=== PATIENT | female | born 1990 | race African-American/Black ===

== ENCOUNTER 2019-01-17 13:52 | Emergency (ER) | payer SELFPAY ==
[~2019-01-17] VITALS: Ht 160 cm; Wt 77.1 kg
--- NOTE | 2019-01-17 14:01 | ED General ---
General Stated Complaint: RT ARM INJ History of Present Illness Date Seen by Provider: Jan 17, 2019 Time Seen by Provider: 14:01 Initial Comments Patient presenting to emergency department for evaluation of right elbow pain that has been going on for 2 weeks. She said she put her arm an awkward position 2 weeks ago and since then she doesn't feel that she can extend her elbow completely and that it hurts as well whenever she flexes or tries to hold something up. She Was getting better however she's feels it is worse over the past one week. No weakness numbness or tingling and she denies any neck pain or trauma. She is in no obvious distress with normal vital signs. Allergies and Home Medications Home Medications Naproxen 500 Mg Tablet, 500 MG PO BID Prescribed by: MIKAL VELÁZQUEZ on 01/17/19 0018 Patient Home Medication List Home Medication List Reviewed: Yes Review of Systems Review of Systems Constitutional: no symptoms reported Respiratory: no symptoms reported Cardiovascular: no symptoms reported Musculoskeletal: joint pain Psychiatric/Neurological: No Symptoms Reported All Other Systems Reviewed Negative Unless Noted: Yes Physical Exam Vital Signs Vital Signs - First Documented 01/17/19 14:00 Temp 99.3 Pulse 72 Resp 16 B/P (MAP) 101/81 (88) Pulse Ox 98 O2 Delivery Room Air Capillary Refill : Height, Weight, BMI Height: '" Weight: lbs. oz. kg; BMI Method: General Appearance: No Apparent Distress, WD/WN Neck: Non Tender, Supple Respiratory: No Respiratory Distress Cardiovascular: Regular Rate, Rhythm Extremity: Normal Capillary Refill, Normal Inspection, Normal Range of Motion, Other (tenderness over dorsal elbow. No deformity or swelling noted.) Neurologic/Psychiatric: Alert, Oriented x3, No Motor/Sensory Deficits Skin: Normal Color, Warm/Dry Progress/Results/Core Measures Suspected Sepsis SIRS Temperature: Pulse: Respiratory Rate: Blood Pressure / Mean: Results/Orders My Orders Orders - MIKAL VELÁZQUEZ DO Elbow 3 View Right (01/17/19 14:08) Vital Signs/I&O 01/17/19 14:00 Temp 99.3 Pulse 72 Resp 16 B/P (MAP) 101/81 (88) Pulse Ox 98 O2 Delivery Room Air Capillary Refill : Progress Note : Progress Note Patient with elbow pain that appears to be muscular skeletal. Radicular pain is a possibility as well. Elbow x-ray is normal and she has a normal neurovascular status so she'll be discharged in stable condition told to take NSAIDs for pain follow with a primary care provider to ensure improvement and come back to the ED sooner with worsening pain neurologic changes with or general concerns. Departure Impression Primary Impression: Strain of elbow, right Qualified Codes: S46.911A - Strain of unspecified muscle, fascia and tendon at shoulder and upper arm level, right arm, initial encounter Disposition: HOME, SELF-CARE Condition: Stable Departure-Patient Inst. Referrals: NO,LOCAL PHYSICIAN (PCP/Family) Primary Care Physician Patient Instructions: Elbow Sprain (DC) Scripts Naproxen (Naprosyn) 500 Mg Tablet 500 MG PO BID, #14 TAB 0 Refills Prov: MIKAL VELÁZQUEZ DO 01/17/19 MIKAL VELÁZQUEZ DO Jan 17, 2019 14:01
[2019-01-17] MEDS ORDERED: NAPR-1071 PO (14:18)
--- NOTE | 2019-01-17 14:37 | Diagnostic Imaging Report ---
EXAMINATION: Right elbow, three views. INDICATION: Traumatic right elbow injury. Pain. Patient reports right elbow got stuck between furniture approximately one week ago. COMPARISON: None available. FINDINGS: No fracture or acute osseous abnormality. Bony alignment is maintained. No significant arthritic change is noted. No elbow joint effusion. Soft tissues are unremarkable. IMPRESSION: No acute fracture or dislocation. Dictated by: Dictated on workstation # [id number]
[2019-01-17 14:45] VITALS: BP 101/81
== END 2019-01-17 14:45 | disposition home or self-care (01) ==
LOC: ER FS 13:54
DX: S46.911A Strain of unspecified muscle, fascia and tendon at shoulder and upper arm level, right arm, initial encounter (principal); X50.1XXA Overexertion from prolonged static or awkward postures, initial encounter
CPT/HCPCS: 73080

== ENCOUNTER 2019-02-10 11:34 | Emergency (ER) | payer SELFPAY ==
[~2019-02-10] VITALS: Ht 160 cm; Wt 80.0 kg
[~2019-02-10 11:34] MED LIST: NAPR-1071 PO
[2019-02-10] MEDS ORDERED: ONDANSETRON 4 MG (ZOFRAN) ORAL DISSOLVE TAB PO STA (12:19)
[2019-02-10] MEDS ORDERED: ANTACID SUSP 30 ML UDC (MYLANTA) PO ONE (12:30)
[2019-02-10] MEDS ORDERED: FAMOTIDINE 20 MG (PEPCID) TABLET PO ONE (12:30)
[2019-02-10 12:31] LABS: CLARITY,URINE CLEAR; COLOR,URINE YELLOW
[2019-02-10 12:32] LABS: BACTERIA,URINE 1+ /HPF; BILIRUBIN,URINE 2+ (NEGATIVE); GLUCOSE, URINE (UA) NEGATIVE (NEGATIVE); KETONES,URINE 1+ (NEGATIVE); LEUKOCYTE ESTERASE ,URINE NEGATIVE (NEGATIVE); NITRITE,URINE NEGATIVE (NEGATIVE); PROTEIN,URINE TRACE (NEGATIVE); RBC,URINE RARE /HPF; SQUAMOUS EPITHELIAL CELL,UR >50 /HPF
[2019-02-10 12:53] LABS: HEMOGLOBIN 12.9 G/DL (11.5-16.0); MEAN PLATELET VOLUME 9.3 FL (7.4-10.4); RED CELL DISTRIBUTION WIDTH 14.2 % (10.0-14.5); WHITE BLOOD COUNT 10.8 10^3/uL (4.3-11.0)
[2019-02-10 13:04] LABS: BUN/CREATININE RATIO 11; CALCIUM 9.8 MG/DL (8.5-10.1); CARBON DIOXIDE 22 MMOL/L (21-32); CHLORIDE 99 MMOL/L (98-107); CREATININE SERUM 0.55 MG/DL (0.60-1.30); GFR ESTIMATED > 60; GLUCOSE 98 MG/DL (70-105); POTASSIUM 3.5 MMOL/L (3.6-5.0); SODIUM 137 MMOL/L (135-145)
[2019-02-10] MEDS ORDERED: NS IV 1000 ML 1,000 ML IV SCH (13:15)
[2019-02-10] MEDS ORDERED: ONDA4TAB11 PO (13:25)
[2019-02-10] MEDS ORDERED: FAMO-119 PO (13:26)
[2019-02-10 13:32] VITALS: BP 121/62
--- NOTE | 2019-02-11 04:53 | ED Abdominal Pain ---
General Chief Complaint: Abdominal/GI Problems Stated Complaint: N/V; LOSS OF APPETITE Nursing Triage Note: PT REPORTS N/V SINCE LAST SUNDAY. Sepsis Screen: No Definite Risk Exam Limitations: No Limitations History of Present Illness Date Seen by Provider: Feb 10, 2019 Time Seen by Provider: 07:00 Initial Comments Patient is a 29-year-old -[place] female presents with persistent nausea vomiting for the past several days. Reports mild epigastric pain upon eating. Denies flank pain, urinary frequency urgency or burning. No hematemesis or coffee-ground emesis. No diarrhea or melena. No other acute symptoms or complaints. Last menstrual period was approximately 5 weeks ago. Timing/Duration: 4-5 Days Severity/Quality: Moderate Location: Epigastric Radiation: No Radiation Modifying Factors: Improves With Analgesics Associated Symptoms: No Denies Symptoms, No Back Pain; Heartburn, Nausea/Vomiting Allergies and Home Medications Allergies Coded Allergies: No Known Drug Allergies (Unverified , 02/10/19) Home Medications Famotidine 20 Mg Tablet, 20 MG PO BID Prescribed by: CRISTOBAL CASTILLO on 02/10/19 1326 Naproxen 500 Mg Tablet, 500 MG PO BID Prescribed by: MIKAL VELÁZQUEZ on 01/17/19 1418 Ondansetron 4 Mg Tab.rapdis, 4 MG PO Q6H Prescribed by: CRISTOBAL CASTILLO on 02/10/19 1325 Patient Home Medication List Home Medication List Reviewed: Yes Review of Systems Review of Systems Constitutional: see HPI EENTM: See HPI Respiratory: See HPI Cardiovascular: See HPI Gastrointestinal: See HPI Genitourinary: See HPI Musculoskeletal: see HPI Skin: see HPI Psychiatric/Neurological: See HPI Endocrine: See HPI Past Xcoovvg-Jsikew-Amhgim Hx Past Med/Social Hx: Reviewed Nursing Past Med/Soc Hx Patient Social History Alcohol Use: Denies Use Recreational Drug Use: No Smoking Status: Current Everyday Smoker Type Used: Cigarettes 2nd Hand Smoke Exposure: Yes Recent Foreign Travel: No Contact w/Someone Who Travel: No Recent Infectious Disease Expo: No Recent Hopitalizations: No Physical Abuse: No Sexual Abuse: No Mistreated: No Fear: No Seasonal Allergies Seasonal Allergies: No Past Medical History Surgeries: No Respiratory: No Cardiac: No Neurological: No Genitourinary: No Gastrointestinal: No Musculoskeletal: No Endocrine: No HEENT: No Cancer: No Psychosocial: No Integumentary: No Blood Disorders: No Physical Exam Vital Signs Vital Signs - First Documented 02/10/19 12:00 Temp 36.9 Pulse 63 Resp 18 B/P (MAP) 118/44 Pulse Ox 100 O2 Delivery Room Air Capillary Refill : Less Than 3 Seconds Height/Weight/BMI Height: 5'3.00" Weight: 170lbs. oz. 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, no motor/sensory deficits, alert, oriented x 3 Progress/Results/Core Measures Results/Orders Lab Results Laboratory Tests Test 02/10/19 12:03 02/10/19 12:40 Range/Units Urine Color YELLOW Urine Clarity CLEAR Urine pH 6.0 5-9 Urine Specific [place] >1.030 1.016-1.022 Urine Protein TRACE NEGATIVE Urine Glucose (UA) NEGATIVE NEGATIVE Urine Ketones 1+ H NEGATIVE Urine Nitrite NEGATIVE NEGATIVE Urine Bilirubin 2+ H NEGATIVE Urine Urobilinogen 1.0 NORMAL MG/DL Urine Leukocyte Esterase NEGATIVE NEGATIVE Urine RBC (Auto) TRACE H NEGATIVE Urine RBC RARE /HPF Urine WBC NONE /HPF Urine Squamous Epithelial Cells >50 H /HPF Urine Crystals NONE /LPF Urine Bacteria 1+ /HPF Urine Casts NONE /LPF Urine Mucus NEGATIVE /LPF Urine Culture Indicated NO White Blood Count 10.8 4.3-11.0 10^3/uL Red Blood Count 4.08 L 4.35-5.85 10^6/uL Hemoglobin 12.9 11.5-16.0 G/DL Hematocrit 39 35-52 % Mean Corpuscular Volume 94 80-99 FL Mean Corpuscular Hemoglobin 32 25-34 PG Mean Corpuscular Hemoglobin Concent 34 32-36 G/DL Red Cell Distribution Width 14.2 10.0-14.5 % Platelet Count 227 130-400 10^3/uL Mean Platelet Volume 9.3 7.4-10.4 FL Sodium Level 137 135-145 MMOL/L Potassium Level 3.5 L 3.6-5.0 MMOL/L Chloride Level 99 98-107 MMOL/L Carbon Dioxide Level 22 21-32 MMOL/L Anion Gap 16 H 5-14 MMOL/L Blood Urea Nitrogen 6 L 7-18 MG/DL Creatinine 0.55 L 0.60-1.30 MG/DL Estimat Glomerular Filtration Rate > 60 BUN/Creatinine Ratio 11 Glucose Level 98 70-105 MG/DL Calcium Level 9.8 8.5-10.1 MG/DL Human Chorionic Gonadotropin, Quant 43631 H <5 MIU/ML My Orders Orders - CRISTOBAL CASTILLO DO Cbc No Diff (02/10/19 12:19) Basic Metabolic Panel (02/10/19 12:19) Urinalysis (02/10/19 12:19) Urine Bedside (02/10/19 12:19) Famotidine Tablet (Pepcid Tablet) (02/10/19 12:30) Ondansetron Oral Dissolve Tab (Zofran (02/10/19 12:19) Antacid Suspension (Mylanta Suspension (02/10/19 12:30) Hcg,Quantitative (02/10/19 13:03) Ns Iv 1000 Ml (Sodium Chloride 0.9%) (02/10/19 13:15) Vital Signs/I&O 02/10/19 02/10/19 12:00 13:32 Temp 36.9 36.0 Pulse 63 72 Resp 18 16 B/P (MAP) 118/44 121/62 Pulse Ox 100 99 O2 Delivery Room Air Room Air Blood Pressure Mean: 68 Departure Communication (Admissions) Symptomatic improvement with treatment. Recommend continued supportive care and OB follow-up. Impression Primary Impression: Vomiting Disposition: 01 HOME, SELF-CARE Condition: Improved Departure-Patient Inst. Add. Discharge Instructions: Please take newly prescribed medication as directed, drink clear liquids and advance to bland diet as tolerated. Follow-up with local [facility] for additional outpatient testing. All discharge instructions reviewed with patient and/or family. Voiced understanding. Scripts Famotidine (Pepcid) 20 Mg Tablet 20 MG PO BID, #60 TAB Prov: CRISTOBAL CASTILLO DO 02/10/19 Ondansetron (Ondansetron Odt) 4 Mg Tab.rapdis 4 MG PO Q6H, #10 TAB Prov: CRISTOBAL CASTILLO DO 02/10/19 CRISTOBAL CASTILLO DO Feb 11, 2019 04:53
== END 2019-02-10 13:32 | disposition home or self-care (01) ==
LOC: EDUNIT# 11:34 → ER FS 11:35
DX: O21.0 Mild hyperemesis gravidarum (principal); O99.331 Smoking (tobacco) complicating pregnancy, first trimester; F17.210 Nicotine dependence, cigarettes, uncomplicated; Z3A.01 Less than 8 weeks gestation of pregnancy
CPT/HCPCS: 36415; 80048; 81000; 84702; 84703; 85027

== ENCOUNTER 2019-04-13 17:35 | Emergency (ER) | payer OTHER ==
[~2019-04-13 17:35] MED LIST changes: +FAMO-119 PO; +ONDA4TAB11 PO
== END 2019-04-13 17:55 | disposition left against medical advice (07) ==
LOC: EDUNIT# 17:35 → ER FS 17:39
DX: R11.10 Vomiting, unspecified (principal); R10.9 Unspecified abdominal pain

== ENCOUNTER 2019-08-03 10:14 | Emergency (ER) | payer SELFPAY ==
--- NOTE | 2019-08-03 10:43 | ED GU-Female ---
General Chief Complaint: INBOUND SALES ADVISOR Stated Complaint: 7 MONTHS PREG - WEAKNESS,VAGINAL PRESSURE Source: patient History of Present Illness Date Seen by Provider: Aug 03, 2019 Time Seen by Provider: 10:38 Initial Comments 29-year-old female Ab1 unknown last menstrual period with an EDC of 28 September complains of lower abdominal pain midline and is cramping and severe there is some urinary frequency there is no bleeding. This has started out approximately a month ago but has gotten worse recently at the point with the patient poorly tolerates. He also has been sick with low-grade fever and congestion congestion and productive cough. Timing/Duration: getting worse Severity/Quality: moderate Location: suprapubic Radiation: none Activities at Onset: none Prior Genitourinary Problems: none Sexual [place] History: other Allergies and Home Medications Allergies Coded Allergies: No Known Drug Allergies (Unverified , 02/10/19) Home Medications Albuterol Sulfate 6.7 Gm Hfa.aer.ad, 2 PUFF INH Q6H Prescribed by: MEAGHAN KELLY on 08/03/19 1123 Cephalexin 500 Mg Capsule, 500 MG PO BID PRN for Urinary tract infection Prescribed by: MEAGHAN KELLY on 08/03/19 1123 Famotidine 20 Mg Tablet, 20 MG PO BID Prescribed by: CRISTOBAL CASTILLO on 02/10/19 1326 Naproxen 500 Mg Tablet, 500 MG PO BID Prescribed by: MIKAL VELÁZQUEZ on 01/17/19 1418 Ondansetron 4 Mg Tab.rapdis, 4 MG PO Q6H Prescribed by: CRISTOBAL CASTILLO on 02/10/19 1325 Patient Home Medication List Home Medication List Reviewed: Yes Review of Systems Review of Systems Constitutional: fever EENTM: nose congestion Respiratory: cough, phlegm, wheezing Cardiovascular: no symptoms reported Gastrointestinal: see HPI Genitourinary: see HPI, frequency : Yes Expected Date of Delivery: Sep 29, 2019 Musculoskeletal: no symptoms reported Skin: no symptoms reported Psychiatric/Neurological: No Symptoms Reported Past Ohemsku-Dvzppe-Ygtfea Hx Past Med/Social Hx: Reviewed Nursing Past Med/Soc Hx Patient Social History Alcohol Use: Denies Use Recreational Drug Use: No Type Used: Cigarettes 2nd Hand Smoke Exposure: Yes Recent Hopitalizations: No Physical Abuse: No Sexual Abuse: No Mistreated: No Fear: No Seasonal Allergies Seasonal Allergies: No Past Medical History Surgeries: No Respiratory: No Cardiac: No Neurological: No Genitourinary: No Gastrointestinal: No Musculoskeletal: No Endocrine: No HEENT: No Cancer: No Psychosocial: No Integumentary: No Blood Disorders: No Physical Exam Vital Signs Capillary Refill : Height, Weight, BMI Height: 5'3.00" Weight: 170lbs. oz. 77.632548pf; 31.00 BMI Method:Stated General Appearance: WD/WN, no apparent distress HEENT: PERRL/EOMI, normal ENT inspection Neck: non-tender, full range of motion, normal inspection Cardiovascular: regular rate, rhythm, no edema, no murmur Respiratory: chest non-tender, rhonchi, wheezing Gastrointestinal: normal bowel sounds, non tender, soft, distended Back: normal inspection, no CVA tenderness Extremities: normal range of motion, non-tender, normal inspection Neurologic/Psychiatric: regional property manager II-XII nml as tested, no motor/sensory deficits, alert, normal mood/affect, oriented x 3 Skin: normal color, warm/dry Transabdominal ultrasound shows a fetus at or near term transverse lie heart tones in the 148 range placenta visualized anteriorly without evidence of gross hemorrhage or abruption. activity was normal Progress/Results/Core Measures Suspected Sepsis SIRS Temperature: Pulse: Respiratory Rate: Blood Pressure / Mean: Results/Orders Lab Results Laboratory Tests Test 08/03/19 10:45 Range/Units Urine Color DARK YELLOW Urine Clarity CLEAR Urine pH 6.5 5-9 Urine Specific [place] 1.020 1.016-1.022 Urine Protein NEGATIVE NEGATIVE Urine Glucose (UA) NEGATIVE NEGATIVE Urine Ketones TRACE H NEGATIVE Urine Nitrite NEGATIVE NEGATIVE Urine Bilirubin 1+ H NEGATIVE Urine Urobilinogen 1.0 < = 1.0 MG/DL Urine Leukocyte Esterase TRACE H NEGATIVE Urine RBC (Auto) 2+ H NEGATIVE Urine RBC 5-10 H /HPF Urine WBC 5-10 H /HPF Urine Squamous Epithelial Cells 2-5 /HPF Urine Crystals NONE /LPF Urine Bacteria NEGATIVE /HPF Urine Casts NONE /LPF Urine Mucus LARGE H /LPF Urine Culture Indicated YES My Orders Orders - MEAGHAN KELLY DO Ua Culture If Indicated (08/03/19 10:43) Albuterol/Ipra Inhalation Soln (Duoneb I (08/03/19 10:45) Svn Small Volume Nebulizer (08/03/19 10:43) Urine Culture (08/03/19 10:45) Medications Given in ED Current Medications Medications Dose Ordered Sig/Shala Route Start Time Stop Time Status Last Admin Dose Admin Albuterol/ Ipratropium 3 ml ONCE ONCE INH 08/03/19 10:45 08/03/19 10:46 DC 08/03/19 10:51 3 ML Vital Signs/I&O Capillary Refill : Progress Note : Progress Note W5 the patient with 3 problems she is 26 weeks plus or minus with lower abdominal pain but no bleeding urinary frequency symptoms as well as cough and wheezing that is diffuse bilaterally plan will be to give her albuterol nebulizer catheterized urine specimen consult with her manager multicultural concerning follow-up Departure Communication (Admissions) Examination patient's lungs were clear is only faint wheezing now symptomatically she's feels like she is moving more air. Plan will be to continue on the albuterol encouraged not be smoking Communication (PCP) Discussed the patient's urine analysis bedside ultrasound and pulmonary status with Dr. Landeros [facility] who agreed with the management recommended Keflex albuterol and would follow-up the next 1-2 days Impression Primary Impression: Urinary tract infection Additional Impression: Abdominal pain affecting Disposition: HOME, SELF-CARE Condition: Stable Departure-Patient Inst. Referrals: DELILAH LANDEROS DO (PCP/Family) Primary Care Physician 1 or 2 days Patient Instructions: Urinary Tract Infection, Adult (DC) Scripts Albuterol Sulfate (Proventil Hfa) 6.7 Gm Hfa.aer.ad 2 PUFF INH Q6H for SHORTNESS OF BREATH for 5 Days, #1 EACH Prov: MEAGHAN KELLY DO 08/03/19 Cephalexin (Keflex) 500 Mg Capsule 500 MG PO BID PRN for Urinary tract infection for 7 Days, #28 CAP Prov: MEAGHAN KELLY DO 08/03/19 MEAGHAN KELLY DO Aug 03, 2019 10:43
[2019-08-03] MEDS ORDERED: RT-ALBUTEROL/IPRATROPIUM 3 ML (DUONEB) VIAL INH ONE (10:45)
[2019-08-03 11:01] LABS: CLARITY,URINE CLEAR; COLOR,URINE DARK YELLOW; GLUCOSE, URINE (UA) NEGATIVE (NEGATIVE); KETONES,URINE TRACE (NEGATIVE); NITRITE,URINE NEGATIVE (NEGATIVE); PH,URINE 6.5 (5-9); PROTEIN,URINE NEGATIVE (NEGATIVE)
[2019-08-03 11:02] LABS: BILIRUBIN,URINE 1+ (NEGATIVE); LEUKOCYTE ESTERASE ,URINE TRACE (NEGATIVE)
[2019-08-03 11:03] LABS: BACTERIA,URINE NEGATIVE /HPF
[2019-08-03] MEDS ORDERED: RT-ALBUINH INH (11:22)
[2019-08-03] MEDS ORDERED: CEPH-507 PO (11:22)
[2019-08-03 11:31] VITALS: BP 113/76
== END 2019-08-03 11:28 | disposition home or self-care (01) ==
LOC: EDUNIT# 10:14 → ER FS 10:16
DX: O23.41 Unspecified infection of urinary tract in pregnancy, first trimester (principal); Z3A.01 Less than 8 weeks gestation of pregnancy; Z77.22 Contact with and (suspected) exposure to environmental tobacco smoke (acute) (chronic)
CPT/HCPCS: 81000; 87088; 99282

== ENCOUNTER 2021-08-20 11:54 | Emergency (ER) | payer SELFPAY ==
[~2021-08-20 11:54] MED LIST changes: +CEPH-507 PO; +RT-ALBUINH INH
[2021-08-20 12:14] LABS: BASOPHILS # (AUTO) 0.1 10^3/uL (0.0-0.1); BASOPHILS % (AUTO) 1 % (0-10); EOSINOPHILS # (AUTO) 0.7 10^3/uL (0.0-0.3); EOSINOPHILS % (AUTO) 13 % (0-10); HEMATOCRIT 38 % (35-52); HEMOGLOBIN 12.6 g/dL (11.5-16.0); LYMPHOCYTES # (AUTO) 2.2 10^3/uL (1.0-4.0); LYMPHOCYTES % (AUTO) 44 % (12-44); MEAN CORPUSCULAR HEMOGLOBIN 30 pg (25-34); MEAN CORPUSCULAR HGB CONC 33 g/dL (32-36); MEAN CORPUSCULAR VOLUME 90 fL (80-99); MEAN PLATELET VOLUME 8.9 fL (9.0-12.2); MONOCYTES # (AUTO) 0.9 10^3/uL (0.0-1.0); MONOCYTES % (AUTO) 18 % (0-12); NEUTROPHILS # (AUTO) 1.2 10^3/uL (1.8-7.8); NEUTROPHILS % (AUTO) 24 % (42-75); PLATELET COUNT 372 10^3/uL (130-400)
[2021-08-20] MEDS ORDERED: KETOROLAC 30 MG/ML VIAL IVP ONE (12:15)
--- NOTE | 2021-08-20 12:15 | ED Cough/URI ---
General Chief Complaint: Cough/Cold/Flu Symptoms Stated Complaint: CHEST PAIN Source: patient Exam Limitations: no limitations History of Present Illness Date Seen by Provider: Aug 20, 2021 Time Seen by Provider: 12:07 Initial Comments 31-year-old female G3, P3 that is 18 days out from a coming in due to 2 days of nonproductive cough, nonbloody diarrhea, and chest discomfort. Most of the chest discomfort started last night, is a tightness that has seemed to come and go. Its not so bad right now. It is mild to moderate. Has never had this before. Her other children are sick right now as well. She had COVID about a month ago. Is not vaccinated. Denies any history of DVT or PE. Does not take any hormones. Has not had any surgery under general anesthesia in the past 6 weeks. Denies any hemoptysis, shortness of breath, lower extremity swelling or pain, vomiting, fever, or any other concerns. She says she had a follow-up recently with her OB and everything was going well. She had no complications with her . She said the bleeding had consistently been slowing down in regards to her vaginal bleeding. She says in the past 24 hours she is gone through roughly 6 pads which is a little bit more than it was the day prior. Allergies and Home Medications Allergies Coded Allergies: No Known Drug Allergies (Unverified , 02/10/19) Patient Home Medication List Home Medication List Reviewed: Yes Albuterol Sulfate (Proventil Hfa) 6.7 Gm Hfa.aer.ad, 2 PUFF INH Q6H Prescribed by: MEAGHAN KELLY on 08/03/19 1123 Cephalexin (Keflex) 500 Mg Capsule, 500 MG PO BID PRN for Urinary tract infection Prescribed by: MEAGHAN KELLY on 08/03/19 1123 Famotidine (Pepcid) 20 Mg Tablet, 20 MG PO BID Prescribed by: CRISTOBAL CASTILLO on 02/10/19 1326 Naproxen (Naprosyn) 500 Mg Tablet, 500 MG PO BID Prescribed by: MIKAL VELÁZQUEZ on 01/17/19 1418 Ondansetron (Ondansetron Odt) 4 Mg Tab.rapdis, 4 MG PO Q6H Prescribed by: CRISTOBAL CASTILLO on 02/10/19 1325 Review of Systems Review of Systems Constitutional: No chills, No fever EENTM: No blurred vision Respiratory: cough; No short of breath Cardiovascular: chest pain Gastrointestinal: No abdominal pain; diarrhea; No nausea, No vomiting Genitourinary: no symptoms reported Musculoskeletal: no symptoms reported Skin: no symptoms reported Psychiatric/Neurological: No Symptoms Reported Hematologic/Lymphatic: No Symptoms Reported Immunological/Allergic: no symptoms reported All Other Systems Reviewed Negative Unless Noted: Yes Past Jbluaal-Pxxyie-Struxx Hx Patient Social History Tobacco Use?: No Use of E-Cig and/or Vaping dev: No Substance use?: No Alcohol Use?: No Pt feels they are or have been: No Immunizations Up To Date Influenza Vaccine Up-to-Date: No; Not Current First/Initial COVID19 Vaccinat: Not currently vaccinated Seasonal Allergies Seasonal Allergies: No Past Medical History Surgery/Hospitalization HX: x3 Surgeries: Yes Section Respiratory: No Cardiac: No Neurological: No Genitourinary: No Gastrointestinal: No Musculoskeletal: No Endocrine: No HEENT: No Cancer: No Psychosocial: No Integumentary: No Blood Disorders: No Physical Exam Vital Signs - First Documented 08/20/21 11:56 Temp 37.0 Pulse 70 Resp 22 B/P (MAP) 138/89 (105) Pulse Ox 97 O2 Delivery Room Air Capillary Refill : Height: 5'3.00" Weight: 170lbs. oz. 77.101006hn; 31.00 BMI Method:Stated General Appearance: WD/WN, no apparent distress Eyes: Bilateral Eye Normal Inspection HEENT: PERRL/EOMI, normal ENT inspection, pharynx normal Neck: non-tender, full range of motion, supple, normal inspection Respiratory: chest non-tender, lungs clear, normal breath sounds, no respiratory distress, no accessory muscle use Cardiovascular: regular rate, rhythm, no edema, no murmur Gastrointestinal: normal bowel sounds, non tender, soft; No distended, No guarding, No rebound; other ( scar is healed) Extremities: normal range of motion, non-tender, normal inspection, no pedal edema, no calf tenderness, normal capillary refill Neurologic/Psychiatric: no motor/sensory deficits, alert, normal mood/affect Skin: normal color, warm/dry Lymphatic: no adenopathy Progress/Results/Core Measures Suspected Sepsis SIRS Temperature: Pulse: Respiratory Rate: Laboratory Tests 08/20/21 12:00: White Blood Count 5.0 Blood Pressure / Mean: Laboratory Tests 08/20/21 12:00: Creatinine 0.60, INR Comment 1.1, Platelet Count 372, Total Bilirubin 0.2 Results/Orders Lab Results Laboratory Tests Test 08/20/21 12:00 Range/Units White Blood Count 5.0 4.3-11.0 10^3/uL Red Blood Count 4.21 3.80-5.11 10^6/uL Hemoglobin 12.6 11.5-16.0 g/dL Hematocrit 38 35-52 % Mean Corpuscular Volume 90 80-99 fL Mean Corpuscular Hemoglobin 30 25-34 pg Mean Corpuscular Hemoglobin Concent 33 32-36 g/dL Red Cell Distribution Width 14.2 10.0-14.5 % Platelet Count 372 130-400 10^3/uL Mean Platelet Volume 8.9 L 9.0-12.2 fL Immature Granulocyte % (Auto) 0 % Neutrophils (%) (Auto) 24 L 42-75 % Lymphocytes (%) (Auto) 44 12-44 % Monocytes (%) (Auto) 18 H 0-12 % Eosinophils (%) (Auto) 13 H 0-10 % Basophils (%) (Auto) 1 0-10 % Neutrophils # (Auto) 1.2 L 1.8-7.8 10^3/uL Lymphocytes # (Auto) 2.2 1.0-4.0 10^3/uL Monocytes # (Auto) 0.9 0.0-1.0 10^3/uL Eosinophils # (Auto) 0.7 H 0.0-0.3 10^3/uL Basophils # (Auto) 0.1 0.0-0.1 10^3/uL Immature Granulocyte # (Auto) 0.0 0.0-0.1 10^3/uL Prothrombin Time 14.3 12.2-14.7 SEC INR Comment 1.1 0.8-1.4 Activated Partial Thromboplast Time 29 24-35 SEC Sodium Level 140 135-145 MMOL/L Potassium Level 4.6 3.6-5.0 MMOL/L Chloride Level 104 98-107 MMOL/L Carbon Dioxide Level 23 21-32 MMOL/L Anion Gap 13 5-14 MMOL/L Blood Urea Nitrogen 10 7-18 MG/DL Creatinine 0.60 0.60-1.30 MG/DL Estimat Glomerular Filtration Rate 122 BUN/Creatinine Ratio 17 Glucose Level 98 70-105 MG/DL Calcium Level 9.5 8.5-10.1 MG/DL Corrected Calcium 9.3 8.5-10.1 MG/DL Magnesium Level 2.0 1.6-2.4 MG/DL Total Bilirubin 0.2 0.1-1.0 MG/DL Aspartate Amino Transf (AST/SGOT) 16 5-34 U/L Alanine Aminotransferase (ALT/SGPT) 24 0-55 U/L Alkaline Phosphatase 73 40-136 U/L Troponin I < 0.30 <0.30 NG/ML Pro-B-Type Natriuretic Peptide 31.2 <75.0 PG/ML Total Protein 7.6 6.4-8.2 GM/DL Albumin 4.2 3.2-4.5 GM/DL My Orders Orders - VÍCTOR REYNOLDS MD Cbc With Automated Diff (08/20/21 12:06) Magnesium (08/20/21 12:06) Chest 1 View Ap/Pa Only (08/20/21 12:06) Ekg Tracing (08/20/21 12:06) Comprehensive Metabolic Panel (08/20/21 12:06) Protime With Inr (08/20/21 12:06) Partial Thromboplastin Time (08/20/21 12:06) O2 (08/20/21 12:06) Monitor-Rhythm Ecg Trace Only (08/20/21 12:06) Ed Iv/Invasive Line Start (08/20/21 12:06) Troponin I Fs (08/20/21 12:06) Probnp Fs (08/20/21 12:06) Ketorolac Injection (Toradol Injection) (08/20/21 12:15) Medications Given in ED Current Medications Medications Dose Ordered Sig/Shala Route Start Time Stop Time Status Last Admin Dose Admin Ketorolac Tromethamine 15 mg ONCE ONCE IVP 08/20/21 12:15 08/20/21 12:16 DC 08/20/21 12:12 15 MG Vital Signs/I&O 08/20/21 08/20/21 11:56 12:45 Temp 37.0 37.0 Pulse 70 73 Resp 22 18 B/P (MAP) 138/89 (105) 117/54 Pulse Ox 97 99 O2 Delivery Room Air Room Air Capillary Refill : Progress Note : Progress Note Comfortable appearing 31-year-old female with above history coming in due to cough, diarrhea, and some chest discomfort. ABCs were intact and vitals were stable on presentation. Physical exam reassuring, and specifically her abdominal wound from the is healed. It is reassuring that she had COVID about a month ago, and it is very unlikely she has this again. She has no fever as well and is well-appearing. Likely is viral in regards to something her children brought home. An IV was placed and basic labs including cardiac biomarkers were obtained, specifically given she is to further risk assess her for cardiomyopathy. I think this is unlikely given no signs of heart failure clinically on exam. Her [place] score is 0 making her low risk for a PE and she is PERC negative. EKG normal sinus with no signs of ischemia. Troponin negative, BNP normal, hemoglobin normal. Chest x-ray clear. On reassessment vitals continues to be completely normal and she is well-appearing. I believe she is stable for discharge with outpatient follow-up. She was sent home with strict return precautions ECG Initial ECG Impression Date: Aug 20, 2021 Initial ECG Impression Time: 12:07 Initial ECG Rate: 72 Initial ECG Rhythm: Normal Sinus Comment Normal sinus rhythm, narrow QRS, normal axis, no significant ST changes or T wave abnormalities Diagnostic Imaging Diagonstic Imaging: Xray Plain Films/CT/US/NM/MRI: chest Comments [facility]. [place], [place] NAME: YAMILETH NI [facility] REC#: [id number] PT STATUS: REG ER : 1990 PHYSICIAN: VÍCTOR REYNOLDS MD ADMIT DATE: 08/20/21/ER FS Draft Date of Exam:08/20/21 CHEST 1 VIEW AP/PA ONLY INDICATION: Chest pain EXAMINATION:: Chest 08/20/2021 FINDINGS: The cardiomediastinal silhouette is unremarkable. The pulmonary vasculature is within normal limits. The lungs and pleural spaces are clear. IMPRESSION: No evidence of an acute cardiopulmonary process. Dictated on workstation # [id number] Dict: 08/20/21 1232 Trans: 08/20/21 1234 CV [id number] Interpreted by: ZAKIA QUINTEROS MD Electronically signed by: Departure Impression Primary Impression: Upper respiratory infection Qualified Codes: J06.9 - Acute upper respiratory infection, unspecified Additional Impressions: Diarrhea Qualified Codes: R19.7 - Diarrhea, unspecified Chest discomfort Disposition: 01 HOME, SELF-CARE Condition: Stable Departure-Patient Inst. Decision time for Depature: 12:44 Referrals: NO,LOCAL PHYSICIAN (PCP/Family) Primary Care Physician Patient Instructions: Viral Upper Respiratory Infection, Adult (DC), Chest Pain (DC) Add. Discharge Instructions: You were seen in the emergency department with your cough, diarrhea, and chest pain. Your chest x-ray looked clear and you have no signs of pneumonia. Your labs are reassuring and it does not appear like you are having any type of heart attack or other deadly cause of the discomfort you are feeling. It is likely you do have a viral infection that can cause some congestion and discomfort in your chest. I would be careful with taking any ynic-cvt-kdwmnrd decongestants or cold medicine as they can slow down your milk supply when breast-feeding. Tylenol and ibuprofen are always safe for pain. You can also try using a neti pot with saline rinses in your nose to help with the congestion. Talk with your OB if you would like to discuss other medicine she can take while having a viral respiratory infection. Work/School Note: Family Work Note Patient Received Medical Care In the Emergency Department On: Aug 20, 2021 Patient Will Be Able to Return to Work/School On: Aug 20, 2021 Patient Restrictions: Adrián needed to accompany his to the ER. VÍCTOR REYNOLDS MD Aug 20, 2021 12:15
[2021-08-20 12:16] LABS: INR 1.1 (0.8-1.4); PROTHROMBIN TIME PATIENT 14.3 SEC (12.2-14.7)
--- NOTE | 2021-08-20 12:34 | Diagnostic Imaging Report ---
INDICATION: Chest pain EXAMINATION:: Chest 08/20/2021 FINDINGS: The cardiomediastinal silhouette is unremarkable. The pulmonary vasculature is within normal limits. The lungs and pleural spaces are clear. IMPRESSION: No evidence of an acute cardiopulmonary process. Dictated by: Dictated on workstation # [id number]
[2021-08-20 12:37] LABS: ALBUMIN 4.2 GM/DL (3.2-4.5); BILIRUBIN,TOTAL 0.2 MG/DL (0.1-1.0); CALCIUM 9.5 MG/DL (8.5-10.1); CREATININE SERUM 0.6 MG/DL (0.60-1.30); POTASSIUM 4.6 MMOL/L (3.6-5.0); TOTAL PROTEIN 7.6 GM/DL (6.4-8.2)
[2021-08-20 12:45] VITALS: BP 117/54
== END 2021-08-20 12:51 | disposition home or self-care (01) ==
LOC: EDUNIT# 11:54 → ER FS 11:56
DX: J06.9 Acute upper respiratory infection, unspecified (principal); R19.7 Diarrhea, unspecified; R07.89 Other chest pain; Z86.16 Personal history of COVID-19
CPT/HCPCS: 36415; 71045; 80053; 83735; 83880; 84484; 85025; 85610; 85730; 93005; 93041

== ENCOUNTER 2021-10-06 13:13 | Emergency (ER) | payer SELFPAY ==
[~2021-10-06] VITALS: Ht 160 cm; Wt 85.0 kg
[2021-10-06] MEDS ORDERED: LORazepam INJ 2 MG/ML (ATIVAN) VIAL IM ONE (13:30)
[2021-10-06 13:44] VITALS: BP 126/60
[2021-10-06] MEDS ORDERED: LIDOCAINE 2% VISCOUS 15 ML UDC PO ONE (13:45)
[2021-10-06] MEDS ORDERED: ANTACID SUSP 30 ML UDC (MYLANTA) PO ONE (13:45)
[2021-10-06] MEDS ORDERED: ONDANSETRON 4 MG/2 ML (SDV) Z0FRAN IVP ONE (14:15)
[2021-10-06] MEDS ORDERED: FAMOTIDINE 20MG/2ML IV (PEPCID) IVP ONE (14:15)
--- NOTE | 2021-10-06 14:18 | ED General ---
General Chief Complaint: General Problems/Pain Stated Complaint: SOB; CHEST PAIN Nursing Triage Note: Patient has presented to the ER with cc of hyperventilating, short of breath and upper mid abd pain. Patient reports that she has a sharp mid upper abd pain - she drank some milk to help the pain - she had an ulcer in the past. The pain did not go away and she became scared and it became hard to breath. She arrived to ER very anxiou. Source of Information: Patient Exam Limitations: No Limitations History of Present Illness Date Seen by Provider: October 06, 2021 Time Seen by Provider: 14:00 Initial Comments Patient is a 31-year-old female with history of anxiety who presents with epigas tric pain starting 45 minutes prior to ED arrival. States symptoms began after eating and were not improved after drinking milk. She reports moderate to severe sharpness in her upper abdomen which is nonradiating. She does have a history of stomach ulcers. Patient reports feeling anxious and having a panic attack with shortness of breath and tingling in her lips and hands after symptoms began. She denies nausea, vomiting, hematemesis melena hematochezia. No other acute symptoms or complaints. Last menstrual period was 1 month ago. No prior abdominal surgeries. Timing/Duration: 1-3 Hours Severity: Moderate Modifying Factors: improves with Other Associated Systoms: Other Allergies and Home Medications Allergies Coded Allergies: No Known Drug Allergies (Unverified , 02/10/19) Patient Home Medication List Home Medication List Reviewed: Yes Albuterol Sulfate (Proventil Hfa) 6.7 Gm Hfa.aer.ad, 2 PUFF INH Q6H Prescribed by: MEAGHAN KELLY on 08/03/19 1123 Cephalexin (Keflex) 500 Mg Capsule, 500 MG PO BID PRN for Urinary tract infection Prescribed by: MEAGHAN KELLY on 08/03/19 1123 Famotidine (Pepcid) 20 Mg Tablet, 20 MG PO BID Prescribed by: CRISTOBAL CASTILLO on 02/10/19 1326 Naproxen (Naprosyn) 500 Mg Tablet, 500 MG PO BID Prescribed by: MIKAL VELÁZQUEZ on 01/17/19 1418 Ondansetron (Ondansetron Odt) 4 Mg Tab.rapdis, 4 MG PO Q6H Prescribed by: CRISTOBAL CASTILLO on 02/10/19 1325 Review of Systems Review of Systems Constitutional: see HPI EENTM: see HPI Respiratory: see HPI Cardiovascular: see HPI Gastrointestinal: see HPI Genitourinary: see HPI : No Skin: see HPI Psychiatric/Neurological: See HPI Hematologic/Lymphatic: See HPI All Other Systems Reviewed Negative Unless Noted: Yes Past Ctcmlhq-Tegzlv-Xowpun Hx Patient Social History Tobacco Use?: Yes Tobacco type used: Cigarettes Smoking Status: Current Everyday Smoker Use of E-Cig and/or Vaping dev: No Substance use?: No Alcohol Use?: No Pt feels they are or have been: No Immunizations Up To Date First/Initial COVID19 Vaccinat: Not currently vaccinated Seasonal Allergies Seasonal Allergies: No Past Medical History Surgery/Hospitalization HX: x3 Surgeries: Yes Section Respiratory: No Cardiac: No Neurological: No Genitourinary: No Gastrointestinal: No Musculoskeletal: No Endocrine: No HEENT: No Cancer: No Psychosocial: No Integumentary: No Blood Disorders: No Physical Exam Vital Signs Vital Signs - First Documented 10/06/21 13:44 Temp 36.3 Pulse 80 Resp 50 B/P (MAP) 126/60 (82) Pulse Ox 100 Capillary Refill : Height, Weight, BMI Height: 5'3.00" Weight: 170lbs. oz. 77.603259zd; 33.00 BMI Method:Stated General Appearance: Mild Distress Eyes: Bilateral Eye Normal Inspection, Bilateral Eye PERRL, Bilateral Eye EOMI HEENT: PERRL/EOMI, Normal ENT Inspection, Pharynx Normal Respiratory: Lungs Clear Cardiovascular: Regular Rate, Rhythm, No Edema Gastrointestinal: Soft, Tenderness (Epigastric pain/tenderness to palpation) Focused Exam Sepsis Stage: Ruled Out Progress/Results/Core Measures Suspected Sepsis SIRS Temperature: Pulse: 80 Respiratory Rate: 50 Laboratory Tests 10/06/21 14:37: White Blood Count 12.7H Blood Pressure 126 /60 Mean: 82 Laboratory Tests 10/06/21 14:37: Creatinine 0.50L, Platelet Count 248, Total Bilirubin 0.3 Results/Orders Lab Results Laboratory Tests Test 10/06/21 14:37 Range/Units White Blood Count 12.7 H 4.3-11.0 10^3/uL Red Blood Count 4.08 3.80-5.11 10^6/uL Hemoglobin 12.4 11.5-16.0 g/dL Hematocrit 37 35-52 % Mean Corpuscular Volume 91 80-99 fL Mean Corpuscular Hemoglobin 30 25-34 pg Mean Corpuscular Hemoglobin Concent 33 32-36 g/dL Red Cell Distribution Width 16.3 H 10.0-14.5 % Platelet Count 248 130-400 10^3/uL Mean Platelet Volume 9.1 9.0-12.2 fL Immature Granulocyte % (Auto) 0 % Neutrophils (%) (Auto) 81 H 42-75 % Lymphocytes (%) (Auto) 9 L 12-44 % Monocytes (%) (Auto) 8 0-12 % Eosinophils (%) (Auto) 3 0-10 % Basophils (%) (Auto) 0 0-10 % Neutrophils # (Auto) 10.3 H 1.8-7.8 10^3/uL Lymphocytes # (Auto) 1.1 1.0-4.0 10^3/uL Monocytes # (Auto) 1.0 0.0-1.0 10^3/uL Eosinophils # (Auto) 0.3 0.0-0.3 10^3/uL Basophils # (Auto) 0.0 0.0-0.1 10^3/uL Immature Granulocyte # (Auto) 0.0 0.0-0.1 10^3/uL Sodium Level 136 135-145 MMOL/L Potassium Level 4.4 3.6-5.0 MMOL/L Chloride Level 104 98-107 MMOL/L Carbon Dioxide Level 22 21-32 MMOL/L Anion Gap 10 5-14 MMOL/L Blood Urea Nitrogen 10 7-18 MG/DL Creatinine 0.50 L 0.60-1.30 MG/DL Estimat Glomerular Filtration Rate 128 BUN/Creatinine Ratio 20 Glucose Level 94 70-105 MG/DL Calcium Level 9.6 8.5-10.1 MG/DL Corrected Calcium 9.6 8.5-10.1 MG/DL Total Bilirubin 0.3 0.1-1.0 MG/DL Aspartate Amino Transf (AST/SGOT) 30 5-34 U/L Alanine Aminotransferase (ALT/SGPT) 20 0-55 U/L Alkaline Phosphatase 70 40-136 U/L Total Protein 7.2 6.4-8.2 GM/DL Albumin 4.0 3.2-4.5 GM/DL Lipase 27 8-78 U/L My Orders Orders - CRISTOBAL CASTILLO DO Lorazepam Injection (Ativan Injection) (10/06/21 13:30) Lidocaine 2% Viscous 15 Ml (Xylocaine Vi (10/06/21 13:45) Antacid Suspension (Mylanta Suspension (10/06/21 13:45) Cbc With Automated Diff (10/06/21 14:10) Comprehensive Metabolic Panel (10/06/21 14:10) Lipase (10/06/21 14:10) Ua Culture If Indicated (10/06/21 14:10) Urine Bedside (10/06/21 14:10) Famotidine Injection (Pepcid Injection) (10/06/21 14:15) Ondansetron Injection (Zofran Injectio (10/06/21 14:15) Medications Given in ED Current Medications Medications Dose Ordered Sig/Shala Route Start Time Stop Time Status Last Admin Dose Admin Al Hydrox/Mg Hydrox/Simethicone 30 ml ONCE ONCE PO 10/06/21 13:45 10/06/21 13:46 DC 10/06/21 13:38 30 ML Famotidine 20 mg ONCE ONCE IVP 10/06/21 14:15 10/06/21 14:16 DC 10/06/21 14:40 20 MG Lidocaine HCl 15 ml ONCE ONCE PO 10/06/21 13:45 10/06/21 13:46 DC 10/06/21 13:38 15 ML Lorazepam 2 mg ONCE ONCE IM 10/06/21 13:30 10/06/21 13:31 DC 10/06/21 13:28 2 MG Ondansetron HCl 4 mg ONCE ONCE IVP 10/06/21 14:15 10/06/21 14:16 DC 10/06/21 14:40 4 MG Vital Signs/I&O 10/06/21 13:44 Temp 36.3 Pulse 80 Resp 50 B/P (MAP) 126/60 (82) Pulse Ox 100 Capillary Refill : Blood Pressure Mean: 82 Departure Communication (Admissions) CT abdomen pelvis: Ativan, GI cocktail given with partial relief of symptoms. Anxiety resolved with treatment.. Abdominal pain remains minimally tender on repeat exam but resolved with Pepcid. Lab work reviewed and reassuring. Recommendations are watchful waiting supportive care with close PCP follow-up for further monitoring and evaluation. Return precautions reviewed patient verbalizes understanding agreement discharge instructions prior to departure. Impression Primary Impression: Anxiety attack Additional Impression: Epigastric pain Disposition: HOME, SELF-CARE Condition: Stable Departure-Patient Inst. Decision time for Depature: 15:59 Referrals: NO,LOCAL PHYSICIAN (PCP/Family) Primary Care Physician Patient Instructions: Panic Disorder, Gastritis ED Add. Discharge Instructions: You were evaluated in the emergency department for abdominal pain and anxiety. Your symptoms are consistent with gastritis or peptic ulcer disease. Please take newly prescribed medications as directed, avoid alcohol, caffeine and spicy foods. Follow-up with your PCP in 2 to 3 days for reevaluation. Return to the ED if new or worsening symptoms. All discharge instructions reviewed with patient and/or family. Voiced und erstanding. Scripts Famotidine (Pepcid) 20 Mg Tablet 20 MG PO BID, #20 TAB Prov: CRISTOBAL CASTILLO DO 10/06/21 Sucralfate (Carafate) 1 Gram Tablet 1 GM PO QID, #40 TAB Prov: CRISTOBAL CASTILLO DO 10/06/21 CRISTOBAL CASTILLO DO October 06, 2021 14:18
[2021-10-06 14:47] LABS: BASOPHILS % (AUTO) 0 % (0-10); EOSINOPHILS # (AUTO) 0.3 10^3/uL (0.0-0.3); EOSINOPHILS % (AUTO) 3 % (0-10); HEMATOCRIT 37 % (35-52); HEMOGLOBIN 12.4 g/dL (11.5-16.0); LYMPHOCYTES # (AUTO) 1.1 10^3/uL (1.0-4.0); LYMPHOCYTES % (AUTO) 9 % (12-44); MEAN CORPUSCULAR HEMOGLOBIN 30 pg (25-34); MEAN CORPUSCULAR HGB CONC 33 g/dL (32-36); MEAN CORPUSCULAR VOLUME 91 fL (80-99); MEAN PLATELET VOLUME 9.1 fL (9.0-12.2); MONOCYTES % (AUTO) 8 % (0-12); NEUTROPHILS # (AUTO) 10.3 10^3/uL (1.8-7.8); NEUTROPHILS % (AUTO) 81 % (42-75); PLATELET COUNT 248 10^3/uL (130-400); WHITE BLOOD COUNT 12.7 10^3/uL (4.3-11.0)
[2021-10-06 15:10] LABS: POTASSIUM 4.4 MMOL/L (3.6-5.0)
[2021-10-06 15:11] LABS: BILIRUBIN,TOTAL 0.3 MG/DL (0.1-1.0); CALCIUM 9.6 MG/DL (8.5-10.1); CREATININE SERUM 0.5 MG/DL (0.60-1.30); TOTAL PROTEIN 7.2 GM/DL (6.4-8.2)
[2021-10-06] MEDS ORDERED: FAMO-119 PO (16:01)
[2021-10-06] MEDS ORDERED: SUCR1TAB36 PO (16:01)
== END 2021-10-06 16:40 | disposition home or self-care (01) ==
LOC: EDUNIT# 13:13 → ER FS 13:14
DX: F41.0 Panic disorder [episodic paroxysmal anxiety] (principal); R10.13 Epigastric pain; F17.210 Nicotine dependence, cigarettes, uncomplicated
CPT/HCPCS: 36415; 80053; 83690; 85025; 93005

== ENCOUNTER 2022-05-16 07:44 | Emergency (ER) | payer SELFPAY ==
[~2022-05-16] VITALS: Ht 160 cm; Wt 81.9 kg
[~2022-05-16 07:44] MED LIST changes: +SUCR1TAB36 PO
--- NOTE | 2022-05-16 08:01 | ED GU-Female ---
General Stated Complaint: SUPRAPUBIC PAIN; VOMITING History of Present Illness Date Seen by Provider: May 16, 2022 Time Seen by Provider: 07:56 Initial Comments 32-year-old female presents with lower abdominal pain suprapubic pain been gone for about 3 days with significant vomiting. Some hard time getting down. She reports even the right in here was significantly tender. Patient is approximately 14 weeks with last menstrual period of approximately February 07. Patient reports that the pain started out more suprapubic is now bilateral but more in the right lower quadrant. She is continue to have some vomiting. Allergies and Home Medications Allergies Coded Allergies: No Known Drug Allergies (Unverified , 02/10/19) Patient Home Medication List Home Medication List Reviewed: Yes Albuterol Sulfate (Proventil Hfa) 6.7 Gm Hfa.aer.ad, 2 PUFF INH Q6H Prescribed by: MEAGHAN KELLY on 08/03/19 1123 Cephalexin (Keflex) 500 Mg Capsule, 500 MG PO BID PRN for Urinary tract infection Prescribed by: MEAGHAN KELLY on 08/03/19 1123 Doxylamine/Pyridoxine HCl (Diclegis Dr 10-10 mg Tablet) 10 Mg-10 Mg Tablet.dr, 1 EACH PO Q6H PRN for NAUSEA-1ST LINE Prescribed by: MARIA E DEUTSCH on 05/16/22 0952 Famotidine (Pepcid) 20 Mg Tablet, 20 MG PO BID Prescribed by: CRISTOBAL CASTILLO on 02/10/19 1326 Famotidine (Pepcid) 20 Mg Tablet, 20 MG PO BID Prescribed by: CRISTOBAL CASTILLO on 10/06/21 1601 Naproxen (Naprosyn) 500 Mg Tablet, 500 MG PO BID Prescribed by: MIKAL VELÁZQUEZ on 01/17/19 1418 Ondansetron (Ondansetron Odt) 4 Mg Tab.rapdis, 4 MG PO Q6H Prescribed by: CRISTOBAL CASTILLO on 02/10/19 1325 Sucralfate (Carafate) 1 Gram Tablet, 1 GM PO QID Prescribed by: CRISTOBAL CASTILLO on 10/06/21 1601 Review of Systems Review of Systems Constitutional: No chills, No fever Respiratory: No cough Cardiovascular: No chest pain Gastrointestinal: abdominal pain, nausea, vomiting Genitourinary: denies burning, denies dysuria; other (Denies any vaginal bleeding or discharge) : Yes LMP: Feb 07, 2022 Musculoskeletal: No back pain Skin: no symptoms reported Psychiatric/Neurological: No Symptoms Reported Past Odygcce-Mfztft-Flawza Hx Immunizations Up To Date First/Initial COVID19 Vaccinat: Not currently vaccinated Seasonal Allergies Seasonal Allergies: No Past Medical History Surgery/Hospitalization HX: x3 Surgeries: Yes Section Respiratory: No Cardiac: No Neurological: No Genitourinary: No Gastrointestinal: No Musculoskeletal: No Endocrine: No HEENT: No Cancer: No Psychosocial: No Integumentary: No Blood Disorders: No Physical Exam Vital Signs Vital Signs - First Documented 05/16/22 07:50 Temp 36.1 Pulse 73 Resp 16 B/P (MAP) 109/89 (96) Pulse Ox 98 O2 Delivery Room Air Capillary Refill : Height, Weight, BMI Height: 5'3.00" Weight: 170lbs. oz. 77.952923qx; 33.00 BMI Method:Stated General Appearance: WD/WN, no apparent distress HEENT: PERRL/EOMI Neck: full range of motion, supple Cardiovascular: normal peripheral pulses, regular rate, rhythm Respiratory: chest non-tender, normal breath sounds Gastrointestinal: guarding, tenderness (right greater than left lower abd ) Extremities: normal range of motion, non-tender Neurologic/Psychiatric: cmm operator II-XII nml as tested, no motor/sensory deficits, alert Progress/Results/Core Measures Suspected Sepsis SIRS Temperature: Pulse: Respiratory Rate: Laboratory Tests 05/16/22 08:20: White Blood Count 7.3 Blood Pressure / Mean: Laboratory Tests 05/16/22 08:20: Creatinine 0.36L, Platelet Count 248, Total Bilirubin 0.2 Results/Orders Lab Results Laboratory Tests Test 05/16/22 07:48 05/16/22 08:20 Range/Units Urine Color YELLOW Urine Clarity CLOUDY Urine pH 6.0 5-9 Urine Specific [place] >=1.030 1.016-1.022 Urine Protein TRACE H NEGATIVE Urine Glucose (UA) NEGATIVE NEGATIVE Urine Ketones NEGATIVE NEGATIVE Urine Nitrite NEGATIVE NEGATIVE Urine Bilirubin NEGATIVE NEGATIVE Urine Urobilinogen 0.2 < = 1.0 MG/DL Urine Leukocyte Esterase NEGATIVE NEGATIVE Urine RBC (Auto) NEGATIVE NEGATIVE Urine RBC NONE /HPF Urine WBC 0-2 /HPF Urine Squamous Epithelial Cells 10-25 H /HPF Urine Crystals NONE /LPF Urine Bacteria NEGATIVE /HPF Urine Casts NONE /LPF Urine Mucus LARGE H /LPF Urine Culture Indicated NO White Blood Count 7.3 4.3-11.0 10^3/uL Red Blood Count 4.32 3.80-5.11 10^6/uL Hemoglobin 13.2 11.5-16.0 g/dL Hematocrit 38 35-52 % Mean Corpuscular Volume 88 80-99 fL Mean Corpuscular Hemoglobin 31 25-34 pg Mean Corpuscular Hemoglobin Concent 35 32-36 g/dL Red Cell Distribution Width 14.6 H 10.0-14.5 % Platelet Count 248 130-400 10^3/uL Mean Platelet Volume 9.7 9.0-12.2 fL Immature Granulocyte % (Auto) 0 % Neutrophils (%) (Auto) 51 42-75 % Lymphocytes (%) (Auto) 34 12-44 % Monocytes (%) (Auto) 11 0-12 % Eosinophils (%) (Auto) 3 0-10 % Basophils (%) (Auto) 0 0-10 % Neutrophils # (Auto) 3.7 1.8-7.8 10^3/uL Lymphocytes # (Auto) 2.5 1.0-4.0 10^3/uL Monocytes # (Auto) 0.8 0.0-1.0 10^3/uL Eosinophils # (Auto) 0.2 0.0-0.3 10^3/uL Basophils # (Auto) 0.0 0.0-0.1 10^3/uL Immature Granulocyte # (Auto) 0.0 0.0-0.1 10^3/uL Sodium Level 137 135-145 MMOL/L Potassium Level 3.6 3.6-5.0 MMOL/L Chloride Level 106 98-107 MMOL/L Carbon Dioxide Level 18 L 21-32 MMOL/L Anion Gap 13 5-14 MMOL/L Blood Urea Nitrogen 5 L 7-18 MG/DL Creatinine 0.36 L 0.60-1.30 MG/DL Estimat Glomerular Filtration Rate 137 BUN/Creatinine Ratio 14 Glucose Level 93 70-105 MG/DL Calcium Level 8.8 8.5-10.1 MG/DL Corrected Calcium 9.2 8.5-10.1 MG/DL Total Bilirubin 0.2 0.1-1.0 MG/DL Aspartate Amino Transf (AST/SGOT) 12 5-34 U/L Alanine Aminotransferase (ALT/SGPT) 11 0-55 U/L Alkaline Phosphatase 45 40-136 U/L Total Protein 6.8 6.4-8.2 GM/DL Albumin 3.5 3.2-4.5 GM/DL Human Chorionic Gonadotropin, Quant [id number] H <5 MIU/ML My Orders Orders - DEUTSCH,MARIA E L DO Cbc With Automated Diff (05/16/22 08:07) Comprehensive Metabolic Panel (05/16/22 08:07) Hcg,Quantitative (05/16/22 08:07) Ua Culture If Indicated (05/16/22 08:07) Us Appendix [id number] (05/16/22 08:07) Ondansetron Injection (Zofran Injectio (05/16/22 08:15) Lactated Ringers (Lr 1000 Ml Iv Solution (05/16/22 08:07) Us Ob<14 Wks Sngle W/Transvag (05/16/22 08:07) Medications Given in ED Current Medications Medications Dose Ordered Sig/Shala Route Start Time Stop Time Status Last Admin Dose Admin Ondansetron HCl 4 mg ONCE ONCE IVP 05/16/22 08:15 05/16/22 08:16 DC 05/16/22 08:27 4 MG Vital Signs/I&O 05/16/22 07:50 Temp 36.1 Pulse 73 Resp 16 B/P (MAP) 109/89 (96) Pulse Ox 98 O2 Delivery Room Air Capillary Refill : Progress Note : Progress Note Patient with negative ultrasound for appendicitis with reassuring on 14 weeks intrauterine . Patient with negative white count and labs. Patient provided IV fluids. I will discharge her on doxylamine. Recommend she continue close follow-up with her barrel scraper. She is stable and discharged Diagnostic Imaging Diagonstic Imaging: Ultrasound Comments Date of Exam:05/16/22 US OB<14 WKS SNGLE W/TRANSVAG Technique: Live grayscale and color Doppler ultrasound was performed over the gravid uterus. Reason for exam: Right lower quadrant pain. . COMPARISON: None. FINDINGS: A single live intrauterine gestation is visualized with a crown-rump length of 7.9 cm, consistent with a 14 week 0 day gestation. heart tones measure 150 bpm. The placenta is anterior and not low lying. The gestational sac demonstrates normal contours. A dedicated anatomy survey was not performed, however no obvious abnormalities are seen. The ovaries are visualized and have a normal appearance. No adnexal mass or free fluid. No torsion. IMPRESSION: 1. Single live intrauterine gestation measuring 14 weeks 0 days with heart tones of 150 bpm. No abnormalities are identified. Recommend continued follow-up as indicated. 2. Unremarkable sonographic appearance of the ovaries. No free fluid or adnexal mass. Reviewed: Reviewed/Discussed Diagonstic Imaging: Xray Comments Date of Exam:05/16/22 US APPENDIX [id number] TECHNIQUE: Focused ultrasound of the right lower quadrant was performed. COMPARISON: None. Reason for exam: Right lower quadrant abdominal pain. Currently . FINDINGS: The appendix is not visualized in the right lower quadrant. No secondary signs of acute appendicitis are seen. No soft tissue mass or fluid collection. No free fluid. IMPRESSION: 1. Nonvisualization of the appendix in the right lower quadrant. No secondary signs of acute appendicitis. Recommend continued follow-up and if indicated MRI of the abdomen and pelvis without contrast to further evaluate. Reviewed: Reviewed/Discussed Departure Impression Primary Impression: 14 weeks gestation of Additional Impressions: Abdominal pain during in first trimester Nausea/vomiting in Disposition: 01 HOME, SELF-CARE Condition: Stable Departure-Patient Inst. Referrals: NO,LOCAL PHYSICIAN (PCP/Family) Primary Care Physician Patient Instructions: Taking Gjew-cmy-Lzfqlpx Medicines During , Nausea and Vomiting of , - The Fourth Month Add. Discharge Instructions: Drink plenty of fluids, please follow-up with Dr. Sanders in the next 1 to 2 days for continued monitoring. Scripts Doxylamine/Pyridoxine HCl (Norris Julian 10-10 mg Tablet) 10 Mg-10 Mg Tablet. 1 EACH PO Q6H PRN for NAUSEA-1ST LINE, #30 TAB Prov: MARIA E DEUTSCH DO 05/16/22 Work/School Note: Work Release Form Date Seen in the Emergency Department: May 16, 2022 Return to Work: May 17, 2022 MARIA E DEUTSCH DO May 16, 2022 08:01
[2022-05-16] MEDS ORDERED: LACTATED RINGERS 1,000 ML IV STA (08:07)
[2022-05-16] MEDS ORDERED: ONDANSETRON 4 MG/2 ML (SDV) Z0FRAN IVP ONE (08:15)
[2022-05-16 08:20] LABS: BILIRUBIN,URINE NEGATIVE (NEGATIVE); CLARITY,URINE CLOUDY; COLOR,URINE YELLOW; GLUCOSE, URINE (UA) NEGATIVE (NEGATIVE); KETONES,URINE NEGATIVE (NEGATIVE); LEUKOCYTE ESTERASE ,URINE NEGATIVE (NEGATIVE); NITRITE,URINE NEGATIVE (NEGATIVE); PROTEIN,URINE TRACE (NEGATIVE)
[2022-05-16 08:27] LABS: BACTERIA,URINE NEGATIVE /HPF; WBC,URINE 0-2 /HPF
[2022-05-16 08:28] LABS: BASOPHILS % (AUTO) 0 % (0-10); EOSINOPHILS # (AUTO) 0.2 10^3/uL (0.0-0.3); EOSINOPHILS % (AUTO) 3 % (0-10); HEMATOCRIT 38 % (35-52); HEMOGLOBIN 13.2 g/dL (11.5-16.0); LYMPHOCYTES # (AUTO) 2.5 10^3/uL (1.0-4.0); LYMPHOCYTES % (AUTO) 34 % (12-44); MEAN CORPUSCULAR HEMOGLOBIN 31 pg (25-34); MEAN CORPUSCULAR HGB CONC 35 g/dL (32-36); MEAN CORPUSCULAR VOLUME 88 fL (80-99); MEAN PLATELET VOLUME 9.7 fL (9.0-12.2); MONOCYTES # (AUTO) 0.8 10^3/uL (0.0-1.0); MONOCYTES % (AUTO) 11 % (0-12); NEUTROPHILS # (AUTO) 3.7 10^3/uL (1.8-7.8); NEUTROPHILS % (AUTO) 51 % (42-75); PLATELET COUNT 248 10^3/uL (130-400); WHITE BLOOD COUNT 7.3 10^3/uL (4.3-11.0)
[2022-05-16 09:02] LABS: BILIRUBIN,TOTAL 0.2 MG/DL (0.1-1.0); CALCIUM 8.8 MG/DL (8.5-10.1); CREATININE SERUM 0.36 MG/DL (0.60-1.30); POTASSIUM 3.6 MMOL/L (3.6-5.0)
[2022-05-16 09:03] LABS: ALBUMIN 3.5 GM/DL (3.2-4.5); TOTAL PROTEIN 6.8 GM/DL (6.4-8.2)
--- NOTE | 2022-05-16 09:13 | Diagnostic Imaging Report ---
TECHNIQUE: Focused ultrasound of the right lower quadrant was performed. COMPARISON: None. Reason for exam: Right lower quadrant abdominal pain. Currently . FINDINGS: The appendix is not visualized in the right lower quadrant. No secondary signs of acute appendicitis are seen. No soft tissue mass or fluid collection. No free fluid. IMPRESSION: 1. Nonvisualization of the appendix in the right lower quadrant. No secondary signs of acute appendicitis. Recommend continued follow-up and if indicated MRI of the abdomen and pelvis without contrast to further evaluate. Dictated by: Dictated on workstation # [id number]
--- NOTE | 2022-05-16 09:19 | Diagnostic Imaging Report ---
Technique: Live grayscale and color Doppler ultrasound was performed over the gravid uterus. Reason for exam: Right lower quadrant pain. . COMPARISON: None. FINDINGS: A single live intrauterine gestation is visualized with a crown-rump length of 7.9 cm, consistent with a 14 week 0 day gestation. heart tones measure 150 bpm. The placenta is anterior and not low lying. The gestational sac demonstrates normal contours. A dedicated anatomy survey was not performed, however no obvious abnormalities are seen. The ovaries are visualized and have a normal appearance. No adnexal mass or free fluid. No torsion. IMPRESSION: 1. Single live intrauterine gestation measuring 14 weeks 0 days with heart tones of 150 bpm. No abnormalities are identified. Recommend continued follow-up as indicated. 2. Unremarkable sonographic appearance of the ovaries. No free fluid or adnexal mass. Dictated by: Dictated on workstation # [id number]
[2022-05-16] MEDS ORDERED: DOXY1TAB3 PO (09:52)
[2022-05-16 09:59] VITALS: BP 128/85
== END 2022-05-16 09:59 | disposition home or self-care (01) ==
LOC: EDUNIT# 07:44 → ER FS 07:46
DX: O26.892 Other specified pregnancy related conditions, second trimester (principal); O21.9 Vomiting of pregnancy, unspecified; R10.31 Right lower quadrant pain; R10.32 Left lower quadrant pain; Z28.310 Unvaccinated for COVID-19; Z3A.14 14 weeks gestation of pregnancy
CPT/HCPCS: 36415; 76705; 76801; 76817; 80053; 81000; 84702; 85025

== ENCOUNTER → 2022-09-12 | Outpatient (CLI) | payer BC ==
[~2022-09-12] MED LIST changes: +DOXY1TAB3 PO
--- NOTE | 2022-09-12 18:10 | Diagnostic Imaging Report ---
INDICATION: Supervision of normal . Anatomy survey. TECHNIQUE: Multiple real-time grayscale images were obtained over the gravid uterus. COMPARISON: 05/16/2022. FINDINGS: A single live intrauterine gestation is visualized in cephalic presentation. heart tones measure 147 BPM. The placenta is anterior and not low lying. The MAHENDRA is normal measuring 11.4 cm. The cervix is suboptimally visualized. Views of the adnexa are unremarkable. The kidneys, bladder, stomach, ventricles, four-chamber heart, three-vessel cord, and cord insertion are visualized and have a normal appearance. The spine is not well seen due to position. Biometrical measurements are as follows: Biparietal 8.21 cm, age 33 weeks 1 days. Head circumference 29.26 cm, age 32 weeks 2 days. Abdominal circumference 28.37 cm, age 32 weeks 3 days. Femur length 6.30 cm, age 32 weeks 5 days. Sonographic estimate age: 32 weeks 5 days. Sonographic estimated date of delivery: 11/02/2022. Estimated Weight: 1987 gm (+/- 290 gm). LMP percentile: 89%. heart rate: 147 beats per minute. number: 1 of 1. IMPRESSION: 1. Single live intrauterine gestation measuring 32 weeks 5 days with an estimated due date of 11/02/2022. These are somewhat discordant with the clinical dates of 30 weeks 6 days. Recommend continued follow-up as indicated. 2. The spine is not well seen due to position. Otherwise, the anatomy is visualized and has a normal appearance. Recommend attention on follow-up. Dictated by: Dictated on workstation # [id number]
== END ==
LOC: RAD FS 12:20
PROVIDERS: ATTEND Obstetrics & Gynecology
DX: Z34.93 Encounter for supervision of normal pregnancy, unspecified, third trimester (principal); Z3A.32 32 weeks gestation of pregnancy
CPT/HCPCS: 76805

== ENCOUNTER 2022-09-22 10:26 | Outpatient (CLI) | payer SELFPAY ==
[~2022-09-22] VITALS: Ht 160 cm; Wt 86.1 kg
[2022-09-22 11:30] LABS: BILIRUBIN,URINE NEGATIVE (NEGATIVE); CLARITY,URINE CLEAR; COLOR,URINE YELLOW; GLUCOSE, URINE (UA) NEGATIVE (NEGATIVE); KETONES,URINE NEGATIVE (NEGATIVE); LEUKOCYTE ESTERASE ,URINE NEGATIVE (NEGATIVE); NITRITE,URINE NEGATIVE (NEGATIVE); PROTEIN,URINE NEGATIVE (NEGATIVE)
[2022-09-22 11:51] VITALS: BP 120/76
[2022-09-22 12:07] LABS: BACTERIA,URINE NEGATIVE /HPF; RBC,URINE RARE /HPF; WBC,URINE RARE /HPF
--- NOTE | 2022-09-22 12:08 | OB Triage Report ---
Standard Progress Note Progress Notes/Assess & Plan Date Seen by a Provider: Sep 22, 2022 Time Seen by a Provider: 11:45 Expected Date of Delivery: Nov 09, 2022 Gestational Age in Weeks: 32 Gestational Age in Days: 2 LMP/JUSTINE Comment: 11/09/22 Progress/Assessment & Plan Patient presents at 32w GA by stated JUSTINE c/w US at outside facility, for R flank pain. She reports it began last night, then resolved, then returned this morning, but more mild than it had been last night. Radiates to R groin area; denies contractions, bleeding, LOF, fever, or dysuria; good FM. Of note, pt has h/o 3 prior CS, and otherwise uncomplicated On exam abdomen is soft, non-distended, and gravid; mildly TTP in R abdomen, no CVA tenderness. A/P: at 32 GA with R flank pain; clinically reassuring on exam and vitals, and afebrile. Suspect MSK cause so will treat with acetaminophen and heat, but will also check UA/UC for potential UTI/urolithiasis as cause. No clinical signs of labor, abruption, or ROM, but will monitor clinically for those; Cat I reactive FHT. If UA/UC is reassuring will plan to DC to home with return precautions Opal Hummel MD Final Diagnosis R flank pain Diagnosis/Problems Diagnosis/Problems (1) Flank pain OPAL HUMMEL MD Sep 22, 2022 12:08
[2022-09-22 12:11] LABS: BASOPHILS % (AUTO) 0 % (0-10); EOSINOPHILS # (AUTO) 0.3 10^3/uL (0.0-0.3); EOSINOPHILS % (AUTO) 2 % (0-10); HEMATOCRIT 33 % (35-52); HEMOGLOBIN 11.4 g/dL (11.5-16.0); LYMPHOCYTES # (AUTO) 2.4 10^3/uL (1.0-4.0); LYMPHOCYTES % (AUTO) 19 % (12-44); MEAN CORPUSCULAR HEMOGLOBIN 31 pg (25-34); MEAN CORPUSCULAR HGB CONC 34 g/dL (32-36); MEAN CORPUSCULAR VOLUME 91 fL (80-99); MEAN PLATELET VOLUME 9.8 fL (9.0-12.2); MONOCYTES # (AUTO) 0.9 10^3/uL (0.0-1.0); MONOCYTES % (AUTO) 7 % (0-12); NEUTROPHILS # (AUTO) 8.7 10^3/uL (1.8-7.8); NEUTROPHILS % (AUTO) 70 % (42-75); PLATELET COUNT 231 10^3/uL (130-400); WHITE BLOOD COUNT 12.4 10^3/uL (4.3-11.0)
== END 2022-09-22 12:40 | disposition home or self-care (01) ==
LOC: WSo 10:26 → LDRP 10:26 → WSo 12:40
PROVIDERS: ATTEND Student in an Organized Health Care Education/Training Program
DX: O99.891 Other specified diseases and conditions complicating pregnancy (principal); R10.9 Unspecified abdominal pain; Z3A.00 Weeks of gestation of pregnancy not specified
CPT/HCPCS: 36415; 81000; 85025; 86762; 86780; 86850; 86900; 86901; 87088; 87340; 87389; 99213

== ENCOUNTER 2022-11-06 05:37 | Outpatient (CLI) | payer SELFPAY ==
[~2022-11-06] VITALS: Ht 157.5 cm; Wt 87.3 kg
[2022-11-06] MEDS ORDERED: PREN-98 PO (12:16)
== END 2022-11-06 12:34 | disposition home or self-care (01) ==
LOC: PREOP 05:37
PROVIDERS: ATTEND Obstetrics & Gynecology
DX: Z01.818 Encounter for other preprocedural examination (principal)

== ENCOUNTER 2022-11-13 05:59 | Inpatient (IN) | payer SELFPAY ==
[2022-11-13] VITALS (11 sets, daily range): BP systolic 86–126; BP diastolic 56–81
[~2022-11-13] VITALS: Ht 157.5 cm; Wt 89.2 kg
[~2022-11-13 05:59] MED LIST changes: +PREN-98 PO
[2022-11-13] MEDS ORDERED: CITRIC ACID/SOB CIT (BICITRA) 30 ML UDC PO ONE (06:15)
[2022-11-13] MEDS ORDERED: METOCLOPRAMIDE INJ 10 MG/2 ML (REGLAN) IV ONE (06:15)
[2022-11-13] MEDS ORDERED: FAMOTIDINE 20MG/2ML IV (PEPCID) IV ONE (06:15)
[2022-11-13] MEDS ORDERED: ceFAZolin INJECTION 2,000 MG in NS (IVPB) 50 ML IV ONE (06:15)
[2022-11-13] MEDS ORDERED: LACTATED RINGERS 1,000 ML IV PRN (06:15)
[2022-11-13 06:35] LABS: BASOPHILS % (AUTO) 0 % (0-10); EOSINOPHILS # (AUTO) 0.3 10^3/uL (0.0-0.3); EOSINOPHILS % (AUTO) 3 % (0-10); HEMATOCRIT 33 % (35-52); HEMOGLOBIN 11.4 g/dL (11.5-16.0); LYMPHOCYTES # (AUTO) 2.9 10^3/uL (1.0-4.0); LYMPHOCYTES % (AUTO) 26 % (12-44); MEAN CORPUSCULAR HEMOGLOBIN 32 pg (25-34); MEAN CORPUSCULAR HGB CONC 35 g/dL (32-36); MEAN CORPUSCULAR VOLUME 91 fL (80-99); MEAN PLATELET VOLUME 9.7 fL (9.0-12.2); MONOCYTES % (AUTO) 9 % (0-12); NEUTROPHILS # (AUTO) 6.9 10^3/uL (1.8-7.8); NEUTROPHILS % (AUTO) 61 % (42-75); PLATELET COUNT 267 10^3/uL (130-400); WHITE BLOOD COUNT 11.2 10^3/uL (4.3-11.0)
[2022-11-13] MEDS: LACTATED RINGERS 1,000 ML IV PRN ×2 (06:38→07:01)
[2022-11-13] MEDS ORDERED: OXYTOCIN PRE-MIX DRIP 500 ML IV ONE ×2 (07:03→09:26)
[2022-11-13] MEDS ORDERED: fentaNYL INJ 100 MCG/2 ML AMP ONE (07:03)
--- NOTE | 2022-11-13 07:12 | Cesarean Section Operative ---
Procedure Procedure Note Pre-operative Diagnosis: Sandrine prescott (32 /Para / , Gestational Age (wks)39 with [] Post-operative Diagnosis: same plus liveborn male , lower uterine segment window[] Procedure: [] Repeat low transverse section Physician: AMPARO WADE Sulfonation Equipment Operator: Leia[] Estimated blood loss: 500 [] mL Disposition: Stable to PACU[] Findings: Liveborn male infant, Apgars8/9, weight8#7oz, intact placenta, 3vc, normal appearing uterus, tubes, and ovaries. Indications:Sandrine prescott (32 /Para / ,Gestational Age (wks) 39 presenting for Repeat LTCS Procedure Details: The patient was seen in pre-op and the procedure was discussed with the patient in full, including the risks, benefits, and alternatives. All questions were answered. The patient was taken to the operating room and a time out was performed, verifying patient and procedure. After spinal anesthesia was placed by our anesthesia colleagues, the patient was placed in the dorsal supine with leftward tilt for uterine displacement.~ Her abdomen was then prepped and draped in the typical sterile fashion. A Pfannenstiel skin incision was made using a scalpel and carried down through the underlying fascia. The fascia was incised in the midline and tented up using Jeet clamps. On both the inferior and superior fascia side the rectus muscle was dissected off bluntly and sharply using Martinez scissors. There was quite a bit of scar tissue from her previous 3 cesareans. The peritoneum was identified and entered bluntly in the midline. This was then stretched laterally using manual strength. After entering the abdominal cavity and confirming lack of intraperitoneal adhesions, a large Loco retractor was placed and the lower uterine segment was visualized. A bladder flap was created with the use of Metzenbaum scissors. A lower uterine segment window was identified. ~ An Allis clamp was used to enter into the window and the amniotic fluid . the fluid was meconium stained. The infant's head was grasped and brought to the level of the incision. Velasco forceps were applied on the TAURUS positioned head. Fundal pressure was applied with joshua traction using the forceps and the infant was delivered without difficulty. Mouth and nares were suctioned with bulb suction. After 30seconds the umbilical cord was clamped and cut, the was handed off to the pediatric staff. A sample of cord blood was then obtained. The placenta was delivered intact via uterine massage. The uterus was exteriorized and cleared of all clots and debris. The uterine incision was closed using 0 Vicryl in a running locked fashion. A second imbricated layer was placed using 0 Vicryl in a running fashion as well. The uterus was flexed forward and the posterior rectouterine space was inspected and cleared of all clots and debris. Again the hysterotomy site was examined and hemostasis was observed. The bilateral tubes and ovaries appeared normal. The uterus was placed back into the abdominal cavity and abdominal gutters were cleared of all clots and debris. A final check of the uterine incision showed it to be hemostatic. The peritoneum was closed using 3-0 Vicryl in a running fashion. The fascia was closed with 0 Vicryl in a running fashion. The subcutaneous space was hemostatic, and irrigated. The subcutaneous space was closed with 3-0 Vicryl in several single interrupted stitches. The skin was then closed using 4-0 Monocryl in a running subcuticular fashion. The skin edges were reapproximated together and were hemostatic. Dermabond was then applied. All sponge, lap and needle c ounts were correct x3 at the end of the procedure per nursing. Vitals - Labs Vital Signs - I&O Vital Signs Date Time Temp Pulse Resp B/P (MAP) Pulse Ox O2 Delivery O2 Flow Rate FiO2 11/13/22 06:12 36.6 78 18 100 Room Air Labs Laboratory Tests 11/13/22 06:23: White Blood Count 11.2H, Red Blood Count 3.61L, Hemoglobin 11.4L, Hematocrit 33L , Mean Corpuscular Volume 91, Mean Corpuscular Hemoglobin 32, Mean Corpuscular Hemoglobin Concent 35, Red Cell Distribution Width 14.4, Platelet Count 267, Mean Platelet Volume 9.7, Immature Granulocyte % (Auto) 1, Neutrophils (%) (Auto) 61, Lymphocytes (%) (Auto) 26, Monocytes (%) (Auto) 9, Eosinophils (%) (Auto) 3, Basophils (%) (Auto) 0, Neutrophils # (Auto) 6.9, Lymphocytes # (Auto) 2.9, Monocytes # (Auto) 1.0, Eosinophils # (Auto) 0.3, Basophils # (Auto) 0.0, Immature Granulocyte # (Auto) 0.1 AMPARO WADE DO Nov 13, 2022 07:12
[2022-11-13] MEDS ORDERED: PHENYLEPHRINE 100 MCG/ML 10 ML (ANESTHESIA) SYR ONE (07:48)
[2022-11-13] MEDS ORDERED: ONDANSETRON 4 MG/2 ML (SDV) Z0FRAN ONE (07:56)
[2022-11-13] MEDS ORDERED: BUPIVACAINE 0.5% 30 ML (SENSORCAINE) VIAL ONE (08:06)
--- NOTE | 2022-11-13 08:27 | History & Physical-OB ---
OB - Chief Complaint & HPI Date/Time Date of Admission: Date of Admission: Nov 13, 2022 at 05:59 Date seen by a Provider: Nov 13, 2022 Time Seen by a Provider: 07:00 Chief Complaint/History OB-Reason for Admission/Chief: Section Hx : 5 Hx Para: 3 Expected Date of Delivery: Nov 15, 2022 Gestational Age in Weeks: 39 Gestational Age in Days: 5 Indication for : desires repeat Admission Nurse Assessment Rev: Yes Allergies and Home Medications Allergies Coded Allergies: No Known Drug Allergies (Unverified , 11/06/22) Patient Home Medication List Home Medication List Reviewed: Yes Vit37/Iron/Folic Acid ([place] Chewable Tablet) 29 Mg Iron-1 Mg Tab.chew, 1 EACH PO DAILY, (Reported) Entered as Reported by: NOAH ARCE on 11/06/22 1216 Last Action: Converted OB - History Hx of Present Care: Yes Ultrasounds: Normal mid trimester US Obstetrical Complications: None Medical Complications: None Information Induced Hypertension: No Maternal Gestational Diabetes: No Hemorrhage: No Obstetrical History Hx : 5 Hx Para: 3 Hx # Term Pregnancies: 3 Hx # Pregnancies: 0 Number of Living Children: 3 Hx Termination: No (SAB) Hx Total # of Abortions (Spona: 1 Hx Multiple Gestation: No Hx Ectopic : No Hx Stillbirth: No Hx Complication: No Hx Induced Hypertens: No Hx Maternal Gestational Diabet: No Hx Hemorrhage: No Delivery History Hx Section: Yes (x3) Patient Past Medical History none Social History/Family History Alcohol Use: Denies Use Smoking Cessation: Never smoker 2nd Hand Smoke Exposure: No Immunizations Influenza Vaccine Up-to-Date: Yes; Up-to-Date First/Initial COVID19 Vaccine: Not currently vaccinated Second COVID19 Vaccination: Not currently vaccinated Third COVID19 Vaccination Date: Not currently vaccinated OB - Admission Exam Physical Exam Vitals: Vital Signs 11/13/22 06:12 Temp 36.6 Pulse 78 Resp 18 Pulse Ox 100 O2 Delivery Room Air HEENT: NCAT Heart: Rhythm Normal Lungs: Clear Abdomen: Non tender Extremities: Normal Heart Rate: 150's Accelerations: Accelerations Present Short Term Variability: Present Fagot Heater Helper Variability: Average (6-25) Contractions on Admission: None Labs Laboratory Tests Test 11/13/22 06:23 Range/Units White Blood Count 11.2 H 4.3-11.0 10^3/uL Red Blood Count 3.61 L 3.80-5.11 10^6/uL Hemoglobin 11.4 L 11.5-16.0 g/dL Hematocrit 33 L 35-52 % Mean Corpuscular Volume 91 80-99 fL Mean Corpuscular Hemoglobin 32 25-34 pg Mean Corpuscular Hemoglobin Concent 35 32-36 g/dL Red Cell Distribution Width 14.4 10.0-14.5 % Platelet Count 267 130-400 10^3/uL Mean Platelet Volume 9.7 9.0-12.2 fL Immature Granulocyte % (Auto) 1 % Neutrophils (%) (Auto) 61 42-75 % Lymphocytes (%) (Auto) 26 12-44 % Monocytes (%) (Auto) 9 0-12 % Eosinophils (%) (Auto) 3 0-10 % Basophils (%) (Auto) 0 0-10 % Neutrophils # (Auto) 6.9 1.8-7.8 10^3/uL Lymphocytes # (Auto) 2.9 1.0-4.0 10^3/uL Monocytes # (Auto) 1.0 0.0-1.0 10^3/uL Eosinophils # (Auto) 0.3 0.0-0.3 10^3/uL Basophils # (Auto) 0.0 0.0-0.1 10^3/uL Immature Granulocyte # (Auto) 0.1 0.0-0.1 10^3/uL OB - Assessment/Plan/Diagnosis Assessment Assessment: section Admission Dx IUP@ 39w6d Admission Status: Inpatient Order (span 2 midnights) Reason for Inpatient Admission: Repeat low transverse section Plan Plan: Section Copy Copies To 1: JENNIFER LEE MD, VICTORIA A DO Nov 13, 2022 08:27
[2022-11-13] MEDS ORDERED: KETOROLAC 30 MG/ML VIAL ONE (09:26)
[2022-11-13] MEDS ORDERED: NALOXONE 0.4 MG/ML 1 ML (NARCAN) VIAL IV PRN (10:45)
[2022-11-13] MEDS ORDERED: MEASLES,MUMPS,RUBELLA 1 EA INJ SC SCH (10:45)
[2022-11-13] MEDS ORDERED: morphine INJ 4 MG/ML 1 ML (VIAL/SYRINGE) IV PRN (10:45)
[2022-11-13] MEDS ORDERED: HYDROcodone/APAP 5 MG/325 MG (LORTAB) TAB PO PRN (10:45)
[2022-11-13] MEDS ORDERED: OXYTOCIN PRE-MIX DRIP 500 ML IV SCH (10:45)
[2022-11-13] MEDS ORDERED: TETANUS,DIPTH,PERTUSS P/F (BOOSTRIX) 0.5 ML VIAL IM SCH (10:45)
[2022-11-13] MEDS ORDERED: DOCU100C37 PO (10:46)
[2022-11-13] MEDS ORDERED: ACHD5005 PO (10:46)
[2022-11-13] MEDS ORDERED: IBUP-1780 PO (10:46)
[2022-11-13] MEDS: CATHETER FLUSH 10 ML SYR IV SCH (14:00)
[2022-11-13] MEDS: KETOROLAC 15 MG/ML VIAL IV SCH ×2 (16:27→21:44)
[2022-11-13] MEDS ORDERED: HYDROcodone/APAP 5 MG/325 MG (LORTAB) TAB ONE (16:53)
[2022-11-13] MEDS: HYDROcodone/APAP 5 MG/325 MG (LORTAB) TAB PO PRN ×2 (16:54→21:47)
[2022-11-13] MEDS: DOCUSATE SODIUM 100 MG (COLACE) CAP PO SCH (21:44)
[2022-11-14] VITALS (7 sets, daily range): BP systolic 10–124; BP diastolic 58–69
[2022-11-14] MEDS: KETOROLAC 15 MG/ML VIAL IV SCH ×2 (03:18→17:47)
[2022-11-14] MEDS: HYDROcodone/APAP 5 MG/325 MG (LORTAB) TAB PO PRN ×6 (03:18→19:52)
[2022-11-14] MEDS: CATHETER FLUSH 10 ML SYR IV SCH (03:18)
[2022-11-14 06:18] LABS: BASOPHILS % (AUTO) 0 % (0-10); EOSINOPHILS # (AUTO) 0.4 10^3/uL (0.0-0.3); EOSINOPHILS % (AUTO) 3 % (0-10); HEMATOCRIT 29 % (35-52); HEMOGLOBIN 9.8 g/dL (11.5-16.0); LYMPHOCYTES # (AUTO) 2.4 10^3/uL (1.0-4.0); LYMPHOCYTES % (AUTO) 21 % (12-44); MEAN CORPUSCULAR HEMOGLOBIN 32 pg (25-34); MEAN CORPUSCULAR HGB CONC 34 g/dL (32-36); MEAN CORPUSCULAR VOLUME 93 fL (80-99); MEAN PLATELET VOLUME 9.9 fL (9.0-12.2); MONOCYTES % (AUTO) 9 % (0-12); NEUTROPHILS # (AUTO) 7.5 10^3/uL (1.8-7.8); NEUTROPHILS % (AUTO) 66 % (42-75); PLATELET COUNT 222 10^3/uL (130-400); WHITE BLOOD COUNT 11.4 10^3/uL (4.3-11.0)
--- NOTE | 2022-11-14 07:54 | Postpartum Progress Note ---
Note Note Day #1 Subjective: Patient is Doing well concerned about some cramping. Breast-feeding going well.. Ambulating, voiding. Tolerating a regular diet without nausea or vomiting. Normal lochia. Pain is well controlled with oral pain medications. Objective: [] Physical Exam: General - Alert and oriented, no apparent distress Breast symmetrical no erythema, edema or engorgement Abdomen - Soft, appropriately tender to palpation, non-distended, fundus firm at Umbilicus. Incision clean dry intact no signs or symptoms of infection. Lochia minimal Extremities - no edema, negative Olga's bilaterally Assessment: [] post- day # 1 status postRepeat low-transverse section. Recovering well, hemodynamically stable Plan: Routine care. Encourage breast feeding. Encourage ambulation. Ferrous sulfate supplementation. Plan for discharge [] Vitals - Labs Vital Signs - I&O Vital Signs Date Time Temp Pulse Resp B/P (MAP) Pulse Ox O2 Delivery O2 Flow Rate FiO2 11/14/22 04:00 36.0 69 18 10/64 (46) 99 Room Air 11/14/22 00:45 36.2 79 18 105/66 (79) 98 Room Air 11/13/22 20:30 36.6 70 18 112/69 (83) 96 Room Air 11/13/22 16:29 36.3 76 18 109/81 (90) 98 Room Air 11/13/22 16:22 Room Air 11/13/22 14:40 37.0 84 18 115/57 (76) 98 Room Air 11/13/22 11:20 36.5 61 18 100/61 (74) 99 Room Air 11/13/22 09:16 35.9 18 110/56 (74) 98 Room Air 11/13/22 09:16 Room Air 11/13/22 09:05 Room Air 11/13/22 09:03 35.9 18 114/63 (80) 95 Room Air 11/13/22 08:49 93/80 (84) Room Air 11/13/22 08:47 Room Air 11/13/22 08:47 35.8 18 86/57 (67) 99 Room Air 11/13/22 08:32 Room Air 11/13/22 08:32 35.8 18 105/58 (74) 99 Room Air 6/12/23 08:18 Room Air 11/13/22 08:18 36.3 18 115/66 (82) 99 Room Air I & O 11/14/22 07:00 Intake Total 950 ml Output Total 350 ml Balance 600 ml Labs Laboratory Tests 11/14/22 05:48: White Blood Count 11.4H, Red Blood Count 3.11L, Hemoglobin 9.8L, Hematocrit 29L, Mean Corpuscular Volume 93, Mean Corpuscular Hemoglobin 32, Mean Corpuscular Hemoglobin Concent 34, Red Cell Distribution Width 14.6H, Platelet Count 222, Mean Platelet Volume 9.9, Immature Granulocyte % (Auto) 1, Neutrophils (%) (Auto) 66, Lymphocytes (%) (Auto) 21, Monocytes (%) (Auto) 9, Eosinophils (%) (Auto) 3, Basophils (%) (Auto) 0, Neutrophils # (Auto) 7.5, Lymphocytes # (Auto) 2.4, Monocytes # (Auto) 1.0, Eosinophils # (Auto) 0.4H, Basophils # (Auto) 0.0, Immature Granulocyte # (Auto) 0.1 AMPARO WADE 13, 2023 07:54
--- NOTE | 2022-11-14 08:08 | Discharge Summary ---
Discharge Summary Hospital Course Problems Reviewed?: Yes Hospital Course Date of Admission: Nov 13, 2022 at 05:59 Admission Diagnosis : Family Physician/Provider: No,Local Physician Date of Discharge: 11/13/22 Discharge Diagnosis: Status post repeat low transverse section Hospital Course: Patient was admitted for repeat low transverse section. She delivered a liveborn male . She did very well intraoperatively. Her postop/ course was uneventful. She was discharged home on day #2 with pain medications and instructions. Labs and Pending Lab Test: Laboratory Tests 11/13/22 06:23: White Blood Count 11.2H, Red Blood Count 3.61L, Hemoglobin 11.4L, Hematocrit 33L , Mean Corpuscular Volume 91, Mean Corpuscular Hemoglobin 32, Mean Corpuscular H emoglobin Concent 35, Red Cell Distribution Width 14.4, Platelet Count 267, Mean Platelet Volume 9.7, Immature Granulocyte % (Auto) 1, Neutrophils (%) (Auto) 61, Lymphocytes (%) (Auto) 26, Monocytes (%) (Auto) 9, Eosinophils (%) (Auto) 3, Basophils (%) (Auto) 0, Neutrophils # (Auto) 6.9, Lymphocytes # (Auto) 2.9, Monocytes # (Auto) 1.0, Eosinophils # (Auto) 0.3, Basophils # (Auto) 0.0, Immature Granulocyte # (Auto) 0.1 Home Meds Active Reported [place] Chewable Tablet ( Vit37/Iron/Folic Acid) 29 Mg Iron-1 Mg Tab.chew 1 Each PO DAILY Activity: Activity as Tolerated Driving Instructions: No Driving for 1 Week NO SMOKING: NO SMOKING Nothing Inside Vagina: No Douching, No [place], No Tampons Discharge Diet: Regular Diet Symptoms to Report to : Appetite Changes, Bleeding Excessive, Pain Increased, Fever Over 101 Degrees F, Pain/Pressure in Chest, Vaginal Bleeding Increase, Vaginal Discharge Foul For Any Problems or Questions: Contact Your Physician Infection Signs and Symptoms: Increased Redness, Foul Odor of Wound, Increased Drainage, Skin Itchy or Has a Rash, Increased Swelling, Temperature Above 101 F Operative Area Clean and Dry: Keep Incision Clean/Dry Stitches/[place]/Dermabond: Dermabond Discharge Physical Examination Allergies: Coded Allergies: No Known Drug Allergies (Unverified , 11/06/22) Vitals & I&Os Vital Signs Date Time Temp Pulse Resp B/P (MAP) Pulse Ox O2 Delivery O2 Flow Rate FiO2 11/13/22 09:16 35.9 18 110/56 (74) 98 Room Air 11/13/22 06:12 78 Discharge Summary Date of Admission Nov 13, 2022 at 05:59 Date of Discharge Supervisory-Addendum Brief Verification & Attestation Participated in pt care: history, MDM, physical Personally performed: exam, history, MDM, supervision of care Care discussed with: other (Not applicable) Procedures: n/a Results interpretation: Verified all documentation I personally saw and examined and performed the procedure on this patient. AMPARO WADE DO Nov 13, 2022 10:46
[2022-11-14] MEDS ORDERED: IBUPROFEN 600 MG (MOTRIN) TAB PO ONE (08:31)
[2022-11-14] MEDS: FERROUS SULF 325 MG (IRON) TAB PO SCH ×2 (08:36→18:50)
[2022-11-14] MEDS: DOCUSATE SODIUM 100 MG (COLACE) CAP PO SCH ×2 (08:36→19:50)
[2022-11-14] MEDS: PRENATAL VITAMIN 1 EA TAB PO SCH (08:36)
[2022-11-14] MEDS: IBUPROFEN 600 MG (MOTRIN) TAB PO PRN ×3 (08:37→19:52)
--- NOTE | 2022-11-14 09:51 | Anesthesia-General Post-Op ---
General Patient Condition Mental Status/LOC: Same as Preop Cardiovascular: Satisfactory Nausea/Vomiting: Absent Respiratory: Satisfactory Pain: Controlled Complications: Absent Post Op Complications Complications None Follow Up Care/Instructions Patient Instructions None needed. Anesthesia/Patient Condition Patient Condition Patient is already discharged to home but she was doing well yesterday evening before she left with no complaints, stable vital signs, no apparent adverse anesthesia problems. No complications reported per nursing. MIL C[place] DO Nov 14, 2022 09:51
--- NOTE | 2022-11-14 09:52 | Anesthesia-Regional Post-Op ---
Regional Patient Condition Mental Status: Alert, Oriented x3 Circulation: Same as Pre-Op Headache: Absent Sensation: Full Recovery Motor Block: Absent Post Op Complications Complications None Follow Up Care/Instructions Patient Instructions None needed. Anesthesia/Patient Condition Patient is doing well, no complaints, stable vital signs, no apparent adverse anesthesia problems. No complications reported per nursing. MIL [place] DO Nov 14, 2022 09:52
[2022-11-14] MEDS ORDERED: IBUPROFEN 800 MG (MOTRIN) TAB PO SCH (11:00)
[2022-11-14] MEDS: SIMETHICONE 80 MG (MYLICON) CHEW PO SCH (21:00)
[2022-11-14] MEDS ORDERED: SIMETHICONE 80 MG (MYLICON) CHEW PO SCH (21:00)
[2022-11-15 04:08] VITALS: BP 89/57
[2022-11-15] MEDS: HYDROcodone/APAP 5 MG/325 MG (LORTAB) TAB PO PRN ×2 (04:08→10:09)
[2022-11-15] MEDS: IBUPROFEN 600 MG (MOTRIN) TAB PO PRN ×2 (04:08→10:09)
--- NOTE | 2022-11-15 08:29 | Postpartum Progress Note ---
Note Note Day #2 Subjective: Patient is without complaints. Ambulating, voiding. Tolerating a regular diet without nausea or vomiting. Normal lochia. Pain is well controlled with oral pain medications.Breast-feeding going well Objective: [] Physical Exam: General - Alert and oriented, no apparent distress Breast symmetrical no erythema or edema or engorgement Abdomen - Soft, appropriately tender to palpation, non-distended, fundus firm at umbilicus Incision site clean dry intact Lochia minimal Extremities - no edema, negative Olga's bilaterally Assessment: [] post- day #2, status post Repeat low-transverse section delivery. Recovering well, hemodynamically stable Plan: Routine care. Encourage breast feeding. Encourage ambulation. Ferrous sulfate supplementation. Considering Depo-Provera for control Plan for dischargeToday follow-up in 1 week Vitals - Labs Vital Signs - I&O Vital Signs Date Time Temp Pulse Resp B/P (MAP) Pulse Ox O2 Delivery O2 Flow Rate FiO2 11/15/22 04:08 36.4 66 18 89/57 (68) 98 Room Air 11/14/22 22:45 36.2 76 18 109/69 (82) 99 Room Air 11/14/22 18:04 36.8 71 18 124/58 (80) 99 Room Air 11/14/22 12:37 36.1 76 18 123/61 (81) 97 Room Air 11/14/22 08:34 36.8 70 18 105/59 (74) 97 Room Air Labs Microbiology 11/13/22 MRSA Screen - Preliminary, Resulted MRSA not isolated AMPARO WADE DO Nov 15, 2022 08:29
[2022-11-15 09:30] VITALS: BP 114/57
[2022-11-15] MEDS: DOCUSATE SODIUM 100 MG (COLACE) CAP PO SCH (09:30)
[2022-11-15] MEDS: PRENATAL VITAMIN 1 EA TAB PO SCH (09:30)
[2022-11-15] MEDS: SIMETHICONE 80 MG (MYLICON) CHEW PO SCH (09:30)
[2022-11-15] MEDS: FERROUS SULF 325 MG (IRON) TAB PO SCH (09:30)
[2022-11-15 13:00] VITALS: BP 117/80
[2022-11-15] MEDS ORDERED: DOCU100C37 PO (15:20)
[2022-11-15] MEDS ORDERED: ACHD5005 PO (15:20)
[2022-11-15] MEDS ORDERED: IBUP-844 PO (15:20)
[2022-11-15] MEDS ORDERED: FERR325T24 PO (15:20)
[2022-11-15 15:30] VITALS: BP 117/80
== END 2022-11-15 15:30 | disposition home or self-care (01) | DRG 788 ==
LOC: LDRP 05:59
PROVIDERS: ADMIT Obstetrics & Gynecology; ATTEND Obstetrics & Gynecology
PROC: 10D00Z1 Extraction of Products of Conception, Low, Open Approach (ICD-10-PCS; principal; 2022-11-13 07:15)
DX: O34.211 Maternal care for low transverse scar from previous cesarean delivery (principal); O77.0 Labor and delivery complicated by meconium in amniotic fluid; Z3A.39 39 weeks gestation of pregnancy; Z37.0 Single live birth; Z23 Encounter for immunization; Z28.310 Unvaccinated for COVID-19; Z28.9 Immunization not carried out for unspecified reason
CPT/HCPCS: 36415; 85025; 86850; 86900; 86901; 87081; 90715; 94664